=== PATIENT | female | born 1975 | race African-American/Black ===

== ENCOUNTER 2020-11-14 17:08 | Emergency (ER) | payer OTHER, SELFPAY ==
--- NOTE | ~2020-11-14 | XR_ITS ---
XR chest 1V 11/14/2020 18:27 Indication: Coughing Procedure: 2 view chest Comparison: No prior studies for comparison. Findings: Bibasilar infiltrates. Heart size normal. No pleural effusion, edema or pneumothorax. No ac brenda osseous abnormality. Impression: 1: Bibasilar infiltrates may represent atelectasis or developing pneumonia. Reviewed, dictated and finalized at location A. Impression: 1: Bibasilar infiltrates may represent atelectasis or developing pneumonia.
[2020-11-14 17:31] VITALS: BP 149/96; PULSE 103; RESP 21; TEMP 36.4; O2SAT 97
[2020-11-14 18:03] LABS: Basophils Percent Auto 0.2 % (0.2-1.2); Hematocrit 40.1 % (37.0-47.0); Hemoglobin 12.6 g/dL (12.0-15.0); Immature Granulocyte Absolute 0.02 K/mm3 (0.00-0.031); Immature Granulocyte Percent A 0.3 % (0-0.5); Lymphocytes Absolute Auto 1.81 K/mm3 (0.9-3.2); Lymphocytes Percent Auto 31.2 % (18.3-44.2); Mean Corpuscular HGB Conc 31.4 g/dl (32-36); Mean Corpuscular Hemoglobin 26.8 pg (26-34); Mean Corpuscular Volume 85.3 fl (80-100); Mean Platelet Volume 10.6 fl (7.4-10.4); Monocytes Absolute Auto 0.6 K/mm3 (0.1-0.6); Neutrophils Absolute Auto 3.4 K/mm3 (1.3-6.7); Neutrophils Percent Auto 58.3 % (45.5-73.1); Platelet Count Result 177 k/mm3 (150-375); Red Cell Distribution Width 14.3 % (11.5-14.5); White Blood Count 5.8 K/mm3 (4.5-10.0)
[2020-11-14 18:22] LABS: Alanine Aminotransferase 42 U/L (4-35); Albumin Level 4.1 g/dL (3.5-5.1); Alkaline Phosphatase 50 U/L (38-126); Anion Gap 8 mmol/L (8-16); Aspartate Amino Transferase 44 U/L (14-36); Bilirubin,Total 0.6 mg/dL (0.2-1.3); Blood Urea Nitrogen 13 mg/dL (7-17); Calcium 8.1 mg/dL (8.4-10.2); Carbon Dioxide 27 mmol/L (22-30); Chloride 100 mmol/L (98-107); Estimated CRCL calculation 140 ml/min; Estimated Glomerular Filt Rate > 60; Glucose 147 mg/dL (65-110); Potassium 3.9 mmol/L (3.4-5.0); Sodium 135 mmol/L (137-145)
--- NOTE | 2020-11-14 20:15 | ED.URI ---
HPI - URI/Sore Throat General Chief Complaint: Upper Respiratory Infection Stated Complaint: Cough, Covid +10 days ago Time Seen by Provider: 11/14/20 19:58 Source: patient Mode of arrival: ambulatory Limitations: no limitations History of Present Illness HPI Narrative: 45-year-old with a history of hypertension, asthma here with complaints of cough for past 1 week. Patient states that she was having tough time catching her breath this afternoon. She denies any fever or chills. Patient states that she finished a course of Z-Maldonado and she is presently on prednisone. She also states that she use her inhalers. She denies any chest pain or fever at this time. MD elicited complaint: cough and nasal congestion Pertinent past history: asthma Onset (ago): week(s) (1) Consistency: intermittent Severity: moderate Able to tolerate fluids by mouth: Yes Exacerbating factors: nothing Relieving factors: nothing Associated symptoms: denies other symptoms Related Data Home Medications Medication Instructions Recorded Confirmed albuterol sulfate INHALATION 11/14/20 hydrochlorothiazide 11/14/20 loratadine mg 11/14/20 pantoprazole PO 11/14/20 Allergies Allergy/AdvReac Type Severity Reaction Status Date / Time No Known Allergies Allergy Verified 11/14/20 19:57 Review of Systems Review of Systems: All systems reviewed & are unremarkable except as noted in HPI and below Constitutional: Constitutional: Reports no additional constitutional complaints Eyes: Eyes: Reports no additional eye complaints ENT: Reports system reviewed and no additional complaints, except as documented Cardiovascular: Cardiovascular: Reports no additional cardiovascular complaints Respiratory: Respiratory: Reports cough and Reports dyspnea Gastrointestinal: Gastrointestinal: Reports no additional gastrointestinal complaints Musculoskeletal: Musculoskeletal: Reports no additional musculoskeletal complaints Neurologic: Reports system reviewed and no additional complaints, except as documented Psychiatric: Psychiatric: Reports no additional psychiatric complaints Exam Narrative: GENERAL: Well-appearing, well-nourished, and in no acute distress. HEAD: Normocephalic, atraumatic. EYES: PERRLA and EOMI. NECK: Supple. CHEST: Clear to auscultation. No respiratory distress. HEART: Regular rate and rhythm. No murmur heard. Normal peripheral pulses. ABDOMEN: Soft, nontender, nondistended, normal active bowel sounds. EXTREMITIES: Normal range of motion. No edema. SKIN: Warm, dry, no rash. NEURO: No focal deficits. Alert and oriented x3. PSYCH: Normal mood and affect. Course Course Emergency Course: Patient comfortably lying on the bed with 98% on O2 saturations. Informed her about her lab work, x-ray findings. Advised her to continue prednisone. Take Robitussin [id number] as needed. Informed her that she does not require any antibiotics at this time. Vital Signs Vital signs: Vital Signs Temperature 36.4 C L 11/14/20 17:31 Pulse Rate 103 H 11/14/20 17:31 Respiratory Rate 21 H 11/14/20 17:31 Blood Pressure 149/96 H 11/14/20 17:31 Pulse Oximetry 97 11/14/20 17:31 Temperature 36.4 C L 11/14/20 17:31 Pulse Rate 103 H 11/14/20 17:31 Respiratory Rate 21 H 11/14/20 17:31 Blood Pressure 149/96 H 11/14/20 17:31 Pulse Oximetry 97 11/14/20 17:31 MDM - URI/Sore Throat Lab Data Result diagrams: 11/14/20 17:55 11/14/20 17:55 Labs: Lab Results 11/14/20 11/14/20 Range/Units 17:55 17:55 WBC 5.8 (4.5-10.0) K/mm3 RBC 4.70 (4.2-5.4) M/mm3 Hgb 12.6 (12.0-15.0) g/dL Hct 40.1 (37.0-47.0) % MCV 85.3 (80-100) fl MCH 26.8 (26-34) pg MCHC 31.4 L (32-36) g/dl RDW 14.3 (11.5-14.5) % Plt Count 177 (150-375) k/mm3 MPV 10.6 H (7.4-10.4) fl Immature Gran % (Auto) 0.3 (0-0.5) % Neut % (Auto) 58.3 (45.5-73.1) % Lymph % (Auto) 31.2 (18.3-44.2) %
[2020-11-14 21:19] VITALS: BP 106/78; PULSE 90; RESP 16; O2SAT 97
== END 2020-11-14 21:21 | disposition home or self-care (01) ==
PROVIDERS: Internal Medicine Nephrology; Emergency Provider Family Medicine; PCP Internal Medicine Gastroenterology
DX: J45.909 Unspecified asthma, uncomplicated (principal)
CPT/HCPCS: 36415; 71045; 80053; 85025; 99283

== ENCOUNTER 2021-11-14 14:03 | Emergency (ER) | payer OTHER, SELFPAY ==
[2021-11-14] VITALS (15 sets, daily range): BP systolic 124–150; BP diastolic 66–106; PULSE 95–138; RESP 12–36; TEMP 36.7; O2SAT 95–100
--- NOTE | ~2021-11-14 | CT_ITS ---
EXAMINATION: CT abdomen pelvis w con DATE: 11/14/2021 18:04 INDICATION: Upper abdominal pain TECHNIQUE: Computed tomography (CT) of the abdomen and pelvis was performed with 100 mL Omnipaque-350 intravenous contrast. Automated exposure control and iterative reconstruction technique were employe d. The dose-length product was 1591.70 mGy-cm. COMPARISON: None FINDINGS: Discoid atelectasis at the lingula. Heart size is normal. No pericardial or pleural effusion. Liver, gallbladder, spleen, pancreas, bilateral adrenal glands and kidneys are normal. Postoperative change of prior umbilical hernia mesh repair situated within the larger region of ventral diastases. Bowels including the appendix are normal. Bladder is normal. Small uterine fibroids, the larger at the poste rior fundus measuring approximately 2 cm. Bilateral adnexa are unremarkable. No free intraperitoneal gas or fluid. No pathologically enlarged abdominal or pelvic lymphadenopathy. Mild scattered degenera tive skeletal changes. IMPRESSION: 1. No acute intra-abdominal/pelvic process. 2. Fibroid uterus. 3. Postoperative change of prior ventral hernia mesh repair within a larger region of ventral diastas es. Reviewed, dictated and finalized at location A. IMPRESSION: 1. No acute intra-abdominal/pelvic process. 2. Fibroid uterus. 3. Postoperative change of prior ventral hernia mesh repair within a larger reg ion of ventral diastases.
--- NOTE | 2021-11-14 15:10 | ED.WEAKNESS ---
HPI - Weakness General Chief complaint: Weakness Stated complaint: dont feel well Time Seen by Provider: 11/14/21 15:04 Source: patient, family and RN notes reviewed Mode of arrival: ambulatory Limitations: no limitations History of Present Illness HPI Narrative: 46 years old -German female is telling me that she woke up this morning not feeling well, hot and cold all day long with nausea and body aches. She denies any fever or chills. Also reports a stomach upset. History of hypertension. Irregular menstrual cycle for the last 12 months. History of COVID 1 year ago. Related Data Home Medications Medication Instructions Recorded Confirmed albuterol sulfate 90 mcg/actuation inhalation 11/14/20 aerosol inhaler hydrochlorothiazide 25 mg tablet 11/14/20 loratadine 10 mg tablet mg 11/14/20 pantoprazole 40 mg tablet,delayed PO 11/14/20 release Allergies Allergy/AdvReac Type Severity Reaction Status Date / Time No Known Allergies Allergy Verified 11/14/21 15:10 Review of Systems Review of Systems: All systems reviewed & are unremarkable except as noted in HPI and below Exam Narrative: General appearance: Well-developed, well-nourished Skin: Normal color Head: Normocephalic, nontraumatic Eyes: Clear conjunctiva ENT: Oropharynx normal, ears normal, nose normal Neck: Supple, nontender Chest and respiratory: Airway patent, no respiratory distress, no accessory muscle use Heart: Regular rate/rhythm Abdomen: Soft, moderate tenderness epigastric and right upper quadrant, no organomegaly, quiet bowel sounds Vascular: Normal peripheral pulses, normal capillary refill. Musculoskeletal: Normal range of motion, nontender back Neurologic: Alert and oriented ?3, RESIDENTIAL LEASING MANAGER is normal as tested, no gross motor deficit Course Vital Signs Vital signs: Vital Signs Temperature 36.7 C 11/14/21 14:40 Pulse Rate 102 H 11/14/21 14:40 Respiratory Rate 16 11/14/21 14:40 Blood Pressure 146/87 H 11/14/21 14:40 Pulse Oximetry 100 11/14/21 14:40 Oxygen Delivery Room Air 11/14/21 14:40 Temperature 36.7 C 11/14/21 14:40 Pulse Rate 104 H 11/14/21 15:09 Respiratory Rate 36 H 11/14/21 15:09 Blood Pressure 150/106 H 11/14/21 15:09 Pulse Oximetry 100 11/14/21 15:09 Oxygen Delivery Room Air 11/14/21 15:09 MDM - Weakness MDM Narrative Medical decision making narrative: Patient presents with feeling hot and cold, body aches, nausea, vomited once in the emergency room, was very restless on arrival, unable to sit still. She denies any respiratory symptoms, fever, chills, diarrhea, constipation. Work-up showed that the patient have COVID infection, patient is not vaccinated, had history of COVID 1 year ago. Currently feeling better after IV fluid and Dilaudid IV. Differential Diagnosis Differential diagnosis: Likely dehydration and other (Abdominal pain, gastritis, and anxiety-like symptoms) Lab Data Result diagrams: 11/14/21 15:25 11/14/21 15:25 Labs: Lab Results 11/14/21 11/14/21 11/14/21 Range/Units 15:21 15:25 15:25 WBC 9.1 (4.5-10.0) K/mm3 RBC 4.77 (4.2-5.4) M/mm3 Hgb 13.1 (12.0-15.0) g/dL Hct 41.5 (37.0-47.0) % MCV 87.0 (80-100) fl MCH 27.5 (26-34) pg MCHC 31.6 L (32-36) g/dl RDW 14.0 (11.5-14.5) % Plt Count 209 (150-375) k/mm3 MPV 9.5 (7.4-10.4) fl Immature Gran % (Auto) 0.3 (0-0.5) % Neut % (Auto) 77.6 H (45.5-73.1) % Lymph % (Auto) 6.9 L (18.3-44.2) % [place] % (Auto) 14.1 H (2.6-8.5) % Eos % (Auto) 0.9 (0-4.4) % Baso % (Auto) 0.2 (0.2-1.2) % Lymph # (Auto) 0.63 L (0.9-3.2) K/mm3
[2021-11-14 15:33] LABS: Basophils Percent Auto 0.2 % (0.2-1.2); Eosinophils Absolute Auto 0.1 K/mm3 (0-0.3); Eosinophils Percent Auto 0.9 % (0-4.4); Hematocrit 41.5 % (37.0-47.0); Hemoglobin 13.1 g/dL (12.0-15.0); Immature Granulocyte Absolute 0.03 K/mm3 (0.00-0.031); Immature Granulocyte Percent A 0.3 % (0-0.5); Lymphocytes Absolute Auto 0.63 K/mm3 (0.9-3.2); Lymphocytes Percent Auto 6.9 % (18.3-44.2); Mean Corpuscular HGB Conc 31.6 g/dl (32-36); Mean Corpuscular Hemoglobin 27.5 pg (26-34); Mean Platelet Volume 9.5 fl (7.4-10.4); Monocytes Absolute Auto 1.3 K/mm3 (0.1-0.6); Monocytes Percent Auto 14.1 % (2.6-8.5); Neutrophils Absolute Auto 7.1 K/mm3 (1.3-6.7); Neutrophils Percent Auto 77.6 % (45.5-73.1); Platelet Count Result 209 k/mm3 (150-375); Red Blood Count 4.77 M/mm3 (4.2-5.4); White Blood Count 9.1 K/mm3 (4.5-10.0)
[2021-11-14 15:44] LABS: Alanine Aminotransferase 19 U/L (6-35); Albumin Level 4.7 g/dL (3.5-5.1); Alkaline Phosphatase 81 U/L (38-126); Anion Gap 13 mmol/L (8-16); Aspartate Amino Transferase 26 U/L (14-36); Bilirubin,Total 0.3 mg/dL (0.2-1.3); Blood Urea Nitrogen 10 mg/dL (7-17); Carbon Dioxide 26 mmol/L (22-30); Chloride 99 mmol/L (98-107); Estimated CRCL calculation 99 ml/min; Estimated Glomerular Filt Rate > 60; Glucose 116 mg/dL (65-110); Potassium 3.8 mmol/L (3.4-5.0); Sodium 138 mmol/L (137-145)
[2021-11-14 16:17] LABS: Thyroid Stimulating Hormone 0.364 uIU/mL (0.465-4.680)
[2021-11-14 16:21] LABS: Appearance Urine Clear (Clear); Bilirubin Urine Negative (Negative); Color Urine Yellow (Yellow); Glucose Urine UA Negative (Negative); Ketones Urine 1+ mg/dL (Negative); Leukocyte Esterase Ur Negative LEU/UL (Negative); Nitrate Urine Negative (Negative); Protein Urine Negative (Negative); pH Urine 7.5 (5.0-9.0)
[2021-11-14 16:22] LABS: Add Urine Microscopic? YES; Blood Urine Trace-Intact (Negative)
[2021-11-14 16:25] LABS: Mucus Urine Rare /lpf; Squamous Epithelial Cell Urine Occasional /hpf (Few); WBC Urine 0-3 /hpf
[2021-11-14 16:38] LABS: Amphetamine Screen Urine Negative (Negative); Barbiturate Screen Urine Negative (Negative); Benzodiazepines Screen Urine Negative (Negative); Cannabinoid Screen Urine Negative (Negative); Cocaine Screen Urine Negative (Negative); Methadone Screen Urine Negative (Negative); Opiate Screen Urine Negative (Negative); Phencyclidine Screen Urine Negative (Negative)
[2021-11-14] MEDS: ONDANSETRON INJ 4 MG/2 ML VIAL 8 MG IV PUSH (17:26)
[2021-11-14] MEDS: HYDROmorphone HCL INJ (*CRX) 1 MG/ML SYR 0.5 MG IV PUSH (17:26)
[2021-11-14] MEDS: SODIUM CHLORIDE 0.9% IV 1,000 ML 999 ML IV CONT (17:26)
[2021-11-14 17:28] LABS: Lipase 174 U/L (23-300)
[2021-11-14 20:05] LABS: SARS-CoV-2 RNA PCR Positive
== END 2021-11-14 21:05 | disposition home or self-care (01) ==
PROVIDERS: Emergency Provider Emergency Medicine; PCP Internal Medicine Gastroenterology
DX: U07.1 COVID-19 (principal); I10 Essential (primary) hypertension; Z79.51 Long term (current) use of inhaled steroids; Z86.16 Personal history of COVID-19; Z28.310 Unvaccinated for COVID-19
CPT/HCPCS: 36415; 74177; 80053; 80307; 81001; 83690; 84443; 85025; 96361; 96374; 96375; 99284; C9803; J1170; J2405; J7030; Q9967; U0003; U0005

== ENCOUNTER 2023-03-09 08:09 | Emergency (ER) | payer OTHER, SELFPAY ==
--- NOTE | ~2023-03-09 | XR_ITS ---
EXAMINATION: XR chest 1V portable DATE: 03/09/2023 08:46 INDICATION: Headache. Dizziness. TECHNIQUE: A single frontal view of the chest was obtained. COMPARISON: CT abdomen and pelvis 11/14/2021 FINDINGS: There is no pneumonia, pleural effusion, or pneumothorax. The heart size is normal. IMPRESSION: 1. No acute cardiopulmonary disease. Reviewed, dictated and finalized at location A. ORT TECHNICIAN
--- NOTE | ~2023-03-09 | CT_ITS ---
EXAMINATION: CT brain wo con DATE: 03/09/2023 08:55 INDICATION: Dizziness. TECHNIQUE: Computed tomography (CT) of the head was performed without intravenous contrast. The mA wa s adjusted according to patient size. Iterative reconstruction technique was employed. The dose-lengt h product was 681.00 mGy-cm. COMPARISON: None FINDINGS: There is no intracranial hemorrhage, acute infarction, or abnormal intracranial mass lesion . The ventricles are normal in size. The orbits are normal. There is mucosal thickening in the parana brandi sinuses. The mastoid air cells are normal. IMPRESSION: 1. Normal brain. Reviewed, dictated and finalized at location A. E FURNISHINGS SUPERVISOR IMPRESSION: 1. Normal brain.
[2023-03-09 08:06] VITALS: BP 150/103; PULSE 89; RESP 16; TEMP 36.4; O2SAT 100
--- NOTE | 2023-03-09 08:20 | ECG_ITS ---
Measurements Intervals [place] Rate: 86 P: 52 CA: 176 QRS: -7 QRSD: 89 T: 11 QT: 369 QTc: 443 Interpretive Statements SINUS RHYTHM VOLTAGE CRITERIA FOR LVH CONSIDER INFERIOR INFARCT, AGE INDETERMINATE BASELINE ARTIFACT- I, III, AVL, AVF, V2-V3 ABNORMAL ECG NO PREVIOUS ECG AVAILABLE FOR COMPARISON Electronically Signed On 03-09-2023 14:20:33 BUSINESS SYSTEMS DEVELOPER by Higinio Lopez D.O.
[2023-03-09] MEDS: hydroCHLOROthiazide 25 MG TABLET PO (08:37)
[2023-03-09] MEDS: hydrALAZINE HCL 20 MG/ML VIAL 10 MG IV PUSH (08:38)
--- NOTE | 2023-03-09 08:38 | ED.DIZZY ---
HPI - Dizziness General Chief Complaint: Dizziness Stated Complaint: Dizzy w/ Hypertension History of Present Illness HPI Narrative: 47-year-old female presenting to the emergency department for evaluation of vertigo symptoms. Patient states that over the course of the last month she has not been taking her blood pressure medications. Patient states last night she was emotionally upset and had onset of dizziness. Patient states the dizziness persisted throughout the evening and into the morning. Patient was trying to ambulate this morning when the dizziness was affecting her more so she presented to the emergency department for evaluation. Patient states when she sits down, rests or closes her eyes that the dizziness improves. Patient states she was having some epigastric burning with this but denies any chest pain or shortness of breath. Patient denies any nausea vomiting or diarrhea. Patient denies any prior history of CVA but states she may have had a prior TIA. Patient denies any history of coronary artery disease. Related Data Home Medications Medication Instructions Recorded Confirmed albuterol sulfate 90 mcg/actuation inhalation 11/14/20 aerosol inhaler hydrochlorothiazide 25 mg tablet 11/14/20 loratadine 10 mg tablet mg 11/14/20 pantoprazole 40 mg tablet,delayed PO 11/14/20 release Allergies Allergy/AdvReac Type Severity Reaction Status Date / Time No Known Allergies Allergy Verified 11/14/21 15:10 Review of Systems Review of Systems: All systems reviewed & are unremarkable except as noted in HPI and below Exam Narrative: APPEARANCE: Well appearing, no pain, no distress, well-nourished. HEAD: normocephalic, atraumatic. EYES: PERRLA/EOMI, conjunctivae clear. NOSE: Normal no drainage EARS:TMS clear with good light reflex. THROAT: Pharynx clear, no exudate. NECK: Supple. No adenopathy, no masses. RESPIRATORY: Airway patent, respirations nonlabored. Clear to auscultation bilaterally, no rales, rhonchi, wheezing. CARDIOVASCULAR: Regular rate and rhythm without murmurs rubs or gallops. ABDOMINAL: Soft, nontender, nondistended, normal bowel sounds MUSCULOSKELETAL: Moves all extremities. Strength/ROM intact, No edema, No calf tenderness. NEURO: Alert. Cranial nerves II through XII intact. Grossly intact SKIN: Warm, dry. Normal Color Course Course Emergency Course: 47-year-old female present to the emergency department for evaluation of hypertension headache and dizziness. Patient was afebrile with no leukocytosis and a stable hemoglobin. patient was negative for influenza RSV and for COVID. Patient had negative serial troponins. Head CT showed no acute intracranial abnormality and chest x-ray showed no acute cardiopulmonary abnormality. Patient did feel improved with treatment, patient was treated with hydralazine and her hydrochlorothiazide. Patient was encouraged to restart her hydrochlorothiazide and to have close follow-up with her primary care physician. Vital Signs Vital signs: Vital Signs Temperature 97.6 F 03/09/23 08:06 Pulse Rate 89 03/09/23 08:06 Respiratory Rate 16 03/09/23 08:06 Blood Pressure 150/103 H 03/09/23 08:06 Pulse Oximetry 100 03/09/23 08:06 Oxygen Delivery Room Air 03/09/23 08:06 Temperature 97.6 F 03/09/23 08:06 Pulse Rate 98 03/09/23 13:00 Respiratory Rate 19 03/09/23 13:00 Blood Pressure 116/81 03/09/23 13:00 Pulse Oximetry 97 03/09/23 13:00 Oxygen Delivery Room Air 03/09/23 08:06 MDM - Dizziness Differential Diagnosis Differential diagnosis: Likely benign paroxysmal positional vertigo, orthostatic hypotension, cerebrovascular accident and transient cerebral ischemia Lab Data Attestation: I reviewed the patient's lab results. 03/09/23 09:09 03/09/23 09:09 Labs: Lab Results 03/09/23 03/09/23 03/09/23 Range/Units 08:22 09:09 12:13 WBC 9.2 (4.5-10.0) K/mm3 RBC 4.60
[2023-03-09] MEDS: MECLIZINE HCL 25 MG TABLET PO (08:45)
[2023-03-09 08:47] VITALS: BP 138/87; PULSE 90; RESP 16
[2023-03-09 09:06] LABS: Influenza A QL RT-PCR Negative (Negative); Influenza B QL RT-PCR Negative (Negative); RSV RNA, RT-PCR Negative (Negative); SARS-CoV-2 RNA PCR Negative (Negative)
[2023-03-09 09:15] LABS: Basophils Percent Auto 0.4 % (0.2-1.2); Eosinophils Absolute Auto 0.4 K/mm3 (0-0.3); Eosinophils Percent Auto 4.6 % (0-4.4); Hematocrit 40.3 % (37.0-47.0); Hemoglobin 12.4 g/dL (12.0-15.0); Immature Granulocyte Absolute 0.06 K/mm3 (0.00-0.031); Immature Granulocyte Percent A 0.7 % (0-0.5); Lymphocytes Absolute Auto 2.73 K/mm3 (0.9-3.2); Lymphocytes Percent Auto 29.8 % (18.3-44.2); Mean Corpuscular HGB Conc 30.8 g/dl (32-36); Mean Corpuscular Volume 87.6 fl (80-100); Mean Platelet Volume 9.5 fl (7.4-10.4); Monocytes Absolute Auto 0.9 K/mm3 (0.1-0.6); Monocytes Percent Auto 9.3 % (2.6-8.5); Neutrophils Absolute Auto 5.1 K/mm3 (1.3-6.7); Neutrophils Percent Auto 55.2 % (45.5-73.1); Platelet Count Result 244 k/mm3 (150-375); Red Cell Distribution Width 14.6 % (11.5-14.5); White Blood Count 9.2 K/mm3 (4.5-10.0)
[2023-03-09 09:27] LABS: Alanine Aminotransferase 16 U/L (6-35); Albumin Level 4.1 g/dL (3.5-5.1); Alkaline Phosphatase 80 U/L (38-126); Anion Gap 7 mmol/L (8-16); Aspartate Amino Transferase 21 U/L (14-36); Bilirubin,Total 0.4 mg/dL (0.2-1.3); Blood Urea Nitrogen 8 mg/dL (7-17); Calcium 8.7 mg/dL (8.4-10.2); Carbon Dioxide 27 mmol/L (22-30); Chloride 106 mmol/L (98-107); Estimated CRCL calculation 133 ml/min; Estimated Glomerular Filt Rate > 60; Glucose 106 mg/dL (65-110); Potassium 3.7 mmol/L (3.4-5.0); Sodium 140 mmol/L (137-145)
[2023-03-09 09:38] LABS: Troponin I < 0.012 ng/mL (0.000-0.034)
[2023-03-09 09:40] VITALS: BP 130/76; PULSE 92; RESP 17; O2SAT 100
[2023-03-09 11:29] VITALS: BP 129/77; PULSE 89; RESP 16; O2SAT 100
[2023-03-09] MEDS: BELLADONNA ALK/PHENOB ELIX 10 ML, MAG HYDROX/ALUMINUM HYD/SIMETH 30 ML, LIDOCAINE HCL 2... PO (11:51)
--- NOTE | 2023-03-09 12:10 | ECG_ITS ---
Measurements Intervals [place] Rate: 85 P: 30 MI: 192 QRS: -7 QRSD: 93 T: 17 QT: 376 QTc: 448 Interpretive Statements SINUS RHYTHM VOLTAGE CRITERIA FOR LVH CONSIDER INFERIOR INFARCT, AGE INDETERMINATE ABNORMAL ECG COMPARED TO ECG 03/09/2023 08:23:44 NO SIGNIFICANT CHANGES Electronically Signed On 03-09-2023 14:30:57 JOB ANALYSIS MANAGER by Higinio Lopez D.O.
[2023-03-09 12:40] LABS: Troponin I < 0.012 ng/mL (0.000-0.034)
[2023-03-09 13:00] VITALS: BP 116/81; PULSE 98; RESP 19; O2SAT 97
== END 2023-03-09 13:02 | disposition home or self-care (01) ==
PROVIDERS: Emergency Provider Emergency Medicine; PCP Internal Medicine Gastroenterology
DX: R42 Dizziness and giddiness (principal); I10 Essential (primary) hypertension; Z20.822 Contact with and (suspected) exposure to COVID-19; T50.2X6A Underdosing of carbonic-anhydrase inhibitors, benzothiadiazides and other diuretics, initial encounter; R94.31 Abnormal electrocardiogram [ECG] [EKG]
CPT/HCPCS: 36415; 70450; 71045; 80053; 84484; 85025; 87637; 93005; 96374; 99284; A9270; J0360

== ENCOUNTER 2023-11-09 08:57 | Emergency (ER) | payer SELFPAY ==
[2023-11-09] VITALS (19 sets, daily range): BP systolic 140–167; BP diastolic 82–101; PULSE 76–88; RESP 14–23; TEMP 36.5; O2SAT 98–100
--- NOTE | ~2023-11-09 | XR_ITS ---
Portable chest x-ray Comparison: 03/09/2023 Clinical History: Cough Findings: Lungs are clear, without focal consolidation or pleural effusion. Cardiomediastinal silho uette is stable. Bones and soft tissues are unremarkable. Impression: Normal chest. Reviewed, dictated and finalized at [facility]. Impression: Normal chest.
--- NOTE | 2023-11-09 09:03 | ECG_ITS ---
Test Date: 2023-11-09 09:04:36 Measurements Intervals [place] Rate: 81 P: 59 CO: 189 QRS: -8 QRSD: 97 T: 20 QT: 377 QTc: 439 Interpretive Statements SINUS RHYTHM VOLTAGE CRITERIA FOR LVH CONSIDER INFERIOR INFARCT, AGE INDETERMINATE ABNORMAL ECG No previous ECG available for comparison Electronically Signed On 11-09-2023 09:36:52 CDT by Higinio Lopez D.O.
[2023-11-09 09:16] LABS: Basophils Percent Auto 0.5 % (0.2-1.2); Eosinophils Absolute Auto 0.3 K/mm3 (0-0.3); Eosinophils Percent Auto 3.2 % (0-4.4); Hematocrit 38.1 % (37.0-47.0); Hemoglobin 12.2 g/dL (12.0-15.0); Immature Granulocyte Absolute 0.04 K/mm3 (0.00-0.031); Immature Granulocyte Percent A 0.5 % (0-0.5); Lymphocytes Absolute Auto 3.23 K/mm3 (0.9-3.2); Lymphocytes Percent Auto 36.5 % (18.3-44.2); Mean Corpuscular Hemoglobin 28.2 pg (26-34); Mean Platelet Volume 9.6 fl (7.4-10.4); Monocytes Absolute Auto 0.9 K/mm3 (0.1-0.6); Monocytes Percent Auto 9.8 % (2.6-8.5); Neutrophils Absolute Auto 4.4 K/mm3 (1.3-6.7); Neutrophils Percent Auto 49.5 % (45.5-73.1); Platelet Count Result 219 k/mm3 (150-375); Red Blood Count 4.33 M/mm3 (4.2-5.4); Red Cell Distribution Width 14.1 % (11.5-14.5); White Blood Count 8.9 K/mm3 (4.5-10.0)
[2023-11-09 09:25] LABS: BEDSIDEPREGUCG Negative
[2023-11-09 09:32] LABS: Alanine Aminotransferase 31 U/L (6-35); Alkaline Phosphatase 76 U/L (38-126); Anion Gap 7 mmol/L (4-12); Aspartate Amino Transferase 32 U/L (14-36); Bilirubin,Total 0.3 mg/dL (0.2-1.3); Blood Urea Nitrogen 12 mg/dL (7-17); Carbon Dioxide 29 mmol/L (22-30); Chloride 102 mmol/L (98-107); Estimated CRCL calculation 116 ml/min; Estimated Glomerular Filt Rate > 60; Glucose 95 mg/dL (65-110); Lipase 269 U/L (23-300); Potassium 3.4 mmol/L (3.4-5.0); Sodium 138 mmol/L (137-145)
--- NOTE | 2023-11-09 09:38 | ED.DIZZY ---
HPI - Dizziness General Chief Complaint: Dizziness Stated Complaint: dizzy x days Time Seen by Provider: 11/09/23 09:18 Source: patient Mode of arrival: ambulatory Limitations: no limitations History of Present Illness HPI Narrative: This is a 48-year-old female who presents to the ED via EMS for chief complaint of dizziness and feeling ill for the past several days. Patient reports the dizziness it is intermittent. States it is specifically worsened when she sits up or stands up. Patient also reports being around several sick people at work recently. She works at a [employer]. Patient states that she does not have any symptoms of spinning or vertigo. endorses issues with her gallbladder with heartburn recently. She has known history of GERD. states that she knows her blood pressure is high but she has not taken her blood pressure meds today. Denies fevers, chills, tenderness, vision change, headache, Related Data Home Medications Medication Instructions Recorded Confirmed albuterol sulfate 90 mcg/actuation inhalation 11/14/20 aerosol inhaler hydrochlorothiazide 25 mg tablet 11/14/20 loratadine 10 mg tablet mg 11/14/20 pantoprazole 40 mg tablet,delayed PO 11/14/20 release Allergies Allergy/AdvReac Type Severity Reaction Status Date / Time No Known Allergies Allergy Verified 11/09/23 10:00 Review of Systems Review of Systems: All systems as dictated in HPI Exam Narrative: GENERAL: Well-appearing, well-nourished, and in no acute distress. HEAD: Normocephalic, atraumatic. EYES: PERRLA and EOMI. ENT: Nares clear, no rhinorrhea or epistaxis. Mucous membranes moist. Oropharynx without tonsillar hypertrophy exudate or other lesions. NECK: Supple. No adenopathy or masses. CHEST: No respiratory distress. Clear to auscultation. No wheezes rales or rhonchi HEART: Regular rate and rhythm. No murmur heard. Normal peripheral pulses. ABDOMEN: Soft, nontender, nondistended, normal active bowel sounds. MSK: Normal range of motion. No edema. SKIN: Warm, dry, no rash. NEURO: Alert and oriented x4. No focal deficits. PSYCH: Normal mood and affect. Course Vital Signs Vital signs: Vital Signs Temperature 97.7 F 11/09/23 08:57 Pulse Rate 88 11/09/23 08:57 Respiratory Rate 17 11/09/23 08:57 Blood Pressure 167/101 H 11/09/23 08:57 Pulse Oximetry 100 11/09/23 08:57 Oxygen Delivery Room Air 11/09/23 08:57 Temperature 97.7 F 11/09/23 08:57 Pulse Rate 83 11/09/23 11:47 Respiratory Rate 23 H 11/09/23 11:47 Blood Pressure 140/83 11/09/23 11:47 Pulse Oximetry 99 11/09/23 11:15 Oxygen Delivery Room Air 11/09/23 08:57 MDM - Dizziness MDM Narrative Medical decision making narrative: This is a 48-year-old female who presents to the ED for chief complaint dizziness, upper respiratory infection symptoms. Also has complaint of heartburn. Vitals are normal. Exam is benign overall. Lab work is grossly unremarkable. Urinalysis negative. Viral swabs are negative. Chest x-ray is. Troponin is. ECG shows normal sinus rhythm. dizziness does not seem to be consistent with vertigo or acute vestibular syndrome today. No focal neurologic deficits on exam. Seems to be more consistent with lightheadedness associated with viral syndrome. She was given normal saline a meclizine with good improvement. She is ambulatory without assistance. Pt will be discharged in stable condition. Return precautions given and supportive measures discussed. Pt is understanding and agreeable with plan for discharge and follow-up with PCP. Lab Data 11/09/23 09:09 11/09/23 09:09 Labs: Lab Results 11/09/23 11/09/23 11/09/23 Range/Units 09:08 09:09 09:16 WBC 8.9 (4.5-10.0) K/mm3 RBC 4.33 (4.2-5.4) M/mm3 Hgb 12.2 (12.0-15.0) g/dL Hct 38.1 (37.0-47.0) % MCV 88.0 (80-100) fl MCH 28.2 (26-34) pg MCHC 32.0
[2023-11-09 09:54] LABS: Influenza A QL RT-PCR Negative (Negative); Influenza B QL RT-PCR Negative (Negative); RSV RNA, RT-PCR Negative (Negative); SARS-CoV-2 RNA PCR Negative (Negative)
[2023-11-09 09:55] LABS: Add Urine Microscopic? YES; Appearance Urine Sl Cloudy (Clear); Bilirubin Urine Negative (Negative); Blood Urine Negative (Negative); Color Urine Yellow (Yellow); Glucose Urine UA Negative (Negative); Ketones Urine Negative (Negative); Leukocyte Esterase Ur Negative LEU/UL (Negative); Nitrate Urine Negative (Negative); Protein Urine Negative (Negative); Urobilinogen Urine 0.2 mg/dL (<2.0)
[2023-11-09] MEDS: SODIUM CHLORIDE 0.9% IV 1,000 ML 999 ML IV CONT (10:00)
[2023-11-09] MEDS: MECLIZINE HCL 25 MG TABLET PO (10:01)
[2023-11-09 10:32] LABS: Troponin I < 0.012 ng/mL (0.000-0.034)
== END 2023-11-09 12:06 | disposition home or self-care (01) ==
PROVIDERS: Student in an Organized Health Care Education/Training Program; Emergency Provider Physician Assistant; PCP Internal Medicine Gastroenterology
DX: B34.9 Viral infection, unspecified (principal); K21.9 Gastro-esophageal reflux disease without esophagitis; Z20.822 Contact with and (suspected) exposure to COVID-19
CPT/HCPCS: 36415; 71045; 80053; 81001; 81025; 83690; 84484; 85025; 87637; 93005; 96360; 99284; A9270; J7030

== ENCOUNTER 2024-07-20 18:53 | Emergency (ER) | payer SELFPAY ==
--- NOTE | ~2024-07-20 | CT_ITS ---
CT brain wo con Ordering provider: Jose Mendez MD History: 49 years Female with . CHI, presyncope . Comparison: March 09, 2023 Technique: CT of the head without contrast. Radiation reduction technique utilized.The dose-length pr oduct was 681 mGy-cm. FINDINGS: BRAIN PARENCHYMA AND CSF SPACES: No midline shift, mass effect or hemorrhage. The brain parenchyma a nd CSF spaces are otherwise normal. Empty sella turcica. VISUALIZED PARANASAL SINUSES: Bilateral ethmoid sinus disease. Well aerated. MASTOIDS: Well aerated. BONES: The bones appear intact. SOFT TISSUES: Visualized nasopharynx is normal. Superficial soft tissues are normal. IMPRESSION: No acute intracranial findings. Reviewed, dictated and finalized at location A.
--- OUTSIDE RECORDS SUMMARY | 2024-07-20 18:56 | XMS_ITS | Referral Summary ---
Author Organization [facility] Address [address] [place] [address] Care Team Providers Care Associate Financial Analyst Name Role Phone Nadia Colunga MD Primary Care Provider Allergies No known active allergies Medications hydroCHLOROth iazide (HYDRODIURIL) 25 mg tablet hydrochlorothiazide 25 mg tablet TAKE 1 TABLET BY MOUTH EVERY DAY Active pantoprazole DR (PROTONIX) 40 mg EC tablet pantoprazole 40 mg tablet,delayed release Ac tive albuterol HFA (PROVENTIL HFA,VENTOLIN HFA,PROAIR HFA) 90 mcg/actuation inhaler albuterol sulfate HFA 90 mcg/actuation aerosol inhaler INHALE TWO PUFFS BY MOUTH FOUR TIMES A DAY Ac tive loratadine (CLARITIN) 10 mg tablet loratadine 10 mg tablet Take 1 tablet every day by oral route. 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 Never 04/16/2020 Average Number of Drinks Not on file 021 Frequency of Binge Drinking Not on file 10/2020 Personal Safety Answer Date Recorded Getting School Help Needed Not on file 05/03 Comments Unknown Sex and Gender Information Value Date Recorded Sex Assigned at Not on file Legal Sex Female 11:32 PM OFFICE CORRESPONDENT Gender Identity Not on file Sexual Orientation Not on file Last Filed Vital Signs Vital Sign Reading Time Taken Comments Blood Pressure 157/91 04/16/2020 3:24 PM OFFICE CORRESPONDENT Pulse 96 04/16/2020 3:24 PM OFFICE CORRESPONDENT Temperature - - Respiratory Rate - - Oxygen Saturation - - Inhaled Oxygen Concentration - - Weight 139.1 kg (306 lb 9.6 oz) 021 12:41 PM CDT Height - - Body Mass Index - - Plan of Treatment Not on file Insurance [facility] Care Teams Associate Financial Analyst Relationship Specialty Start Date End Date Nadia Colunga MD [address] [place] [id number] PCP - General 04/20/20
--- OUTSIDE RECORDS SUMMARY | 2024-07-20 18:57 | XMS_ITS | CONTINUITY OF CARE DOCUMENT ---
Author Name olga espinoza Address Unknown Organization [facility] Address [address] [place] [address] Phone [phone] Care Team Providers Care Accounting Professor Name Role Phone Chito WEBBER, Home Unavailable LEONEL ABBOTT MD Unavailable LEONEL ABBOTT MD Unavailable PROBLEMS Condition Status Date Provider Notes GASTROESOPHAGEAL REFLUX DISEASE, HX OF active ? Home [facility] MD HYPERTENSION, ESSENTIAL;LABS PER PRIMARY active 06/07 Home Dale MD HYPERCHOLESTEROLEMIA;LABS PE R PRIMARY, NML 2009 active Home [facility] MD OBESITY active ? Home Dale MD SLEEP APNEA active Home Dale MD LVH;NML EF 03/2009 active Home Dale MD TRICUSPID REGURGITATION, MILD active Home Dale MD ABNORMAL STRESS NUCLEAR SCAN; WILL CATH active Home Dale MD ANEMIA, IRON DEFICIENCY;PER PRIMARY active Home Dale MD PANCREATITIS; active Home Dale MD FAMILY HX HEART DISEASE active Home oliver MD DIZZINESS active Home Dale MD DYSPNEA ON EXERTION;NEG CXR PER PT 2009 active Home Dale MD CHEST PAIN, ATYPICAL active [facility] ENCOUNTERS Date Type Provider Location Encounter Diag nosis - In-person encounter Office Visit Home Dale MD [facility] GASTROESOPHAGEAL REFLUX DISEASE, HX OFHYPERTENSION, ESSENTIAL;LABS PER PRIMARYHYPERCHOLESTEROLEMIA;L ABS PER PRIMARY, NML 2009OBESITYSLEEP APNEALVH;NML EF 03/2009TRICUSPID REGURGITATION, MILDABNORMAL STRESS NUCLEAR SCAN; WILL CATHANEMIA, IRON DEFICIENCY;PER PRIMARYPANCREATITIS;FAMILY HX HEART DISEASEDIZZINESSDYSPNEA ON EXERTION;NEG CXR PER PT 2009CHEST PAIN, ATYPICAL VITAL SIGNS Date Observation Value Provider blood pressure, diastolic, left arm 91 mm [Hg] Brett Franz RN blood pressure, systolic, left arm 131 mm [Hg] Brett Franz RN blood pressure, diastolic, right arm 89 m m[Hg] Brett Franz RN blood pressure, systolic, right arm 128 m m[Hg] Brett Franz RN blood pressure, diastolic 91 mm[Hg] Aidan Franz RN blood pressure, systolic 131 mm[Hg] Brett Franz RN pulse rate 85 /min Brett Franz RN oxygen saturation, oximetry 100 % Brett Franz RN respiratory rate E&M 18 /min Brett sanches RN weight E&M 261 [lb_av] Brett Franz RN RESULTS Date Observation Value Provider Reference Range Interpretation Location international normalized ratio (INR) 1.1 [facility] prothrombin time (patient) 10.6 s [facility] ferritin, serum 21 ng/mL Srinath Aleman amylase, serum 89 1/L Srinath Aleman lipase, serum 71 1/L Srinath Aleman amylase, serum 89 1/L Srin[facility] Aleman iron saturation percent, serum 11 % Srin[facility] Aleman iron, serum 32 ug/dL Srin[facility] Ale[facility] iron binding capacity, total 281 ug/dL Srinath Aleman globulins, serum, total 3.3 g/dL Srinath Aleman estimated glomerular filtration rate >60 Srin[facility] Aleman anion gap, serum 7.9 [facility] Aleman albumin/globulin ratio, serum 0.9 Srin[facility] Aleman protein, total, serum 6.4 g/dL [facility] albumin, serum 3.1 g/dL [facility] bilirubin, serum, total 0.10 mg/dL [facility] alkaline phosphatase, serum 64 1/L [facility] alanine aminotransferase (SGPT), serum 23 1/L [facility] aspartate aminotransferase (SGOT), serum 10 1/L [facility] calcium, serum 8.0 mg/dL [facility] blood glucose, fasting 92 mg/dL [facility] creatinine, serum 0.70 mg/dL [facility] urea nitrogen, blood 11 mg/dL [facility] carbon dioxide, serum, total 28 mmol/L [facility] chloride, serum 105 mmol/L [facility] potassium, serum 3.9 mmol/L [facility] sodium, serum 137 mmol/L [facility] platelet count 240 10*3/uL [facility] red blood cell distribution width 14.5 % [facility] mean corpuscular hemoglobin concentration, RBC 32.2 g/dL [facility] mean corpuscular hemoglobin, RBC 27.1 pg [facility] mean corpuscular volume, RBC 84.3 fL [facility] hematocrit, blood 33.9 % [facility] hemoglobin, blood 10.9 g/dL [facility] erythrocyte (RBC) count 4.02 10*6/mm3 [facility] monocytes as percent of blood leukocytes 10.1 % [facility] lymphocytes as percent of blood leukocytes 38.7 % [facility] leukocyte count, blood 8.1 10*3/mm3 [facility] Helicobacter pylori screen, serum Negative [facility] urate crystals, amorphous, urine, semiquantitative Occasional [facility] Ash mucus on urinalysis Moderate [facility] urine crystals, microscopic None [facility] Ash epithelial cells, urine, per microscopy Many [facility] casts, urine None [facility] Ash WBC urine on microscopy 1-3 [facility] bacteria, urine microscopy None [facility] Ash RBC urine by microscopy None [facility] Ash leukocyte esterase, urine, by dipstick Negative [facility] Ash urobilinogen, urine, semiquantitative (dipstick) Normal [facility] Ash nitrite, urine, semiquantitative Negative [facility] Ash RBC, urine, dipstick Negative [facility] Ahs bilirubin, urine Negative [facility] Ash ketones, urine, by test strip Negative [facility] Ash glucose, urine, semiquantitative Normal [facility] Ash protein, urine, semiquantitative (dipstick) Negative [facility] Ash pH, urine, semiquantitative 6.0 [facility] specific gravity, urine 1.020 [facility] Ash urine color Mary [facility] appearance, urine Hazy [facility] triglyceride, serum, fasting 60 mg/dL [facility] HDL cholesterol, serum 44 mg/dL [facility] LDL cholesterol, serum 101 mg/dL [facility] Ash cholesterol, serum 157 mg/dL [facility] Ash lipase, serum 310 1/L [facility] amylase, serum 69 1/L [facility] HISTORY OF MEDICATION USE Medication Status Instructions Dates Provider Indications Com ments IRON TABS active daily Brett Franz RN RANITIDINE HCL 150 MG ORAL TABLET active ONE TAB DAILY Brett Franz RN ASPIRIN 81 MG ORAL TABLET active ONE TAB. DAILY Brett Franz RN HYDROCHLOROTHIAZIDE 12.5 MG ORAL CAPSULE active ONE TAB. DAILY Brett Franz RN SOCIAL HISTORY Date Observation Value Provider social history E&M Marital Statu s: Single L tee with family/friends E thnicity: Brett Franz RN social history reviewed E&M reviewed Brett Franz RN physical exercise, f requency, days per week no [employer] caffeine use, averag e drinks per day no [employer] alcohol use, average drinks per day social basis only [employer] smoking status Non-smoker [employer] MENTAL STATUS Date Observation Value Provider assessment of judgme nt and insight E&M Alert and oriented to time, place and person. Mood and affect are normal. Brett Franz RN INSURANCE PROVIDERS Payer name Policy type / Coverage type [employer] party ID [employer] MEDICAID (2) Medicaid [id number] TREATMENT PLAN Date Name Performer consult due to test results: O rders: S pirometry (CPT-27292) H olter Monitor 24 Hr (CPT-21915) Home Dale MD consult due to test results: H er updated medication list for this problem includes: Aspirin 81 Mg Tabs (Aspirin) ..... One tab. daily Home Dale MD consult due to test results: H er updated medication list for this problem includes: Hydrochlorothiazide 12.5 Mg Caps (Hydrochlorothiazide) ..... One tab. daily Aspirin 81 Mg Tabs (Aspirin) ..... One tab. daily Orders: S pirometry (CPT-91093) H olter Monitor 24 Hr (CPT-97445) Home Dale MD consult due to test results: O rders: S pirometry (CPT-80368) H olter Monitor 24 Hr (CPT-02733) Home Dale MD consult due to test results Ana Luisa Dale MD consult due to test results: H er updated medication list for this problem includes: Hydrochlorothiazide 12.5 Mg Caps (Hydrochlorothiazide) ..... One tab. daily Orders: S pirometry (CPT-43889) H olter Monitor 24 Hr (CPT-27906) Home Dale MD consult due to test results: O rders: S leep Study (*) C omplete Echo (CPT-61668) Home Dale MD consult due to test results: O rders: S leep Study (*) C omplete Echo (CPT-18803) S pirometry (CPT-87802) H olter Monitor 24 Hr (CPT-72206) Home Dale MD consult due to test results: O rders: S pirometry (CPT-66689) H olter Monitor 24 Hr (CPT-98225) Home Dale MD consult due to test results: O rders: S leep Study (*) C omplete Echo (CPT-85693) S pirometry (CPT-23101) H olter Monitor 24 Hr (CPT-71339) Home Dale MD consult due to test results: B P today: 131/91 Prior BP: / () C HOL: 157 (03/26/2009) LDL: 101 (03/26/2009) HDL: 44 (03/26/2009) T (03/26/2009) Orders: S leep Study (*) C omplete Echo (CPT-96301) S pirometry (CPT-58015) H olter Monitor 24 Hr (CPT-97624) Home Dale MD consult due to test results: H er updated medication list for this problem includes: Hydrochlorothiazide 12.5 Mg Caps (Hydrochlorothiazide) ..... One tab. daily Aspirin 81 Mg Tabs (Aspirin) ..... One tab. daily BP today: 131/91 Labs Reviewed: C reat: 0.70 (03/26/2009) C hol: 157 (03/26/2009) HDL: 44 (03/26/2009) LDL: 101 (03/26/2009) T (03/26/2009) Orders: S leep Study (*) C omplete Echo (CPT-15484) Home Dale MD Date Name Gallbaladder Ultraso und Cardiac Cath - CNE Holter Monitor 24 Hr Spirometry Complete Echo Sleep Study
--- OUTSIDE RECORDS SUMMARY | 2024-07-20 18:57 | XMS_ITS | Data Portability ---
Author Organization [facility] Address [address] [place] [address] Assessment No assessment recorded. Plan of Treatment Reminders Order Date Submit Date Provider Last Modified By Organization Details Last Modified Time Details Appointments None recorded. Lab CMP, serum or plasma 2023 024 [place] [place] [facility], [address], [address], [place], [address], 4 07:16:18 lipid panel, serum 2023 024 [facility], [address], [address], [place], [address], 4 07:16:17 CBC 2023 024 [place] [facility], [address], [address], [place], [address], 4 07:16:19 TSH, ultra-sensi tive, serum 2023 024 [place] [place] [facility], [address], [address], [place], [address], 4 07:16:18 CBC 2021 022 [place] [facility], [address], [address], [place], [address], 2 06:12:17 CMP, serum or plasma 2021 022 [facility], [address], [address], [place], [address], 2 06:12:17 lipid panel, serum 2021 022 [facility], [address], [address], [place], [address], 2 06:12:16 CBC 2020 021 [facility], [address], [address], [place], [address], 1 08:17:16 CMP, serum or plasma 2020 021 [facility], [address], [address], [place], [address], 1 08:17:15 lipid panel, serum 2020 021 [facility], [address], [address], [place], [address], 1 08:17:16 platelets, auto, blood - for pt's fine needle aspiration, ultrasound guided, thyroid (PROC) 2020 021 [email or web address] 1 [facility] (One Call Scheduling), [address] [place], [address], 1 09:57:05 PT/PTT, plasma - for pt's fine needle aspiration, ultrasound guided, thyroid (PROC) 2020 021 [email or web address] 1 [facility] (One Call Scheduling), [address] [place], [address], 1 09:56:49 TSH + free T4, serum 2020 021 [email or web address] 1 [facility] (One Call Scheduling), [address] [place], [address], 1 09:56:35 TSH + free T4, serum 2019 020 [place] [place] [facility], [address], [address], [place], [address], 0 17:29:34 T3, free, serum or plasma 2019 020 [place] [place] [facility], [address], [address], [place], [address], 0 17:29:34 Referral general surgeon referral 2021 022 [place] Richardson MD, [address] [facility], [address], [place], [address], 2 15:59:17 Procedures fine needle aspiration, ultrasound guided, thyroid (PROC) 2020 021 [email or web address] 1 [facility] (Imaging), [address] [place], [address], 1 12:04:31 Surgeries None recorded. Imaging US, abdomen 2020 021 [facility] (One Call Scheduling), [address] [place], [address], 2 16:45:56 US, neck 2019 020 [facility] (One Call Scheduling), [address] [place], [address], 1 10:46:25 Medication Orders albuterol sulfate HFA 90 mcg/actuati on aerosol inhaler 2023 024 [facility]armacy #[id number], [address], [place], [address], 4 13:03:16 hydrochloro thiazide 25 mg tablet 2023 024 [facility]armacy #[id number], [address], [place], [address], 4 13:01:11 pantoprazol e 40 mg tablet,mey yed release 2023 024 [id number] [address], [place], [address], 4 13:01:12 albuterol sulfate HFA 90 mcg/actuati on aerosol inhaler 2021 022 [id number], [address], [place], [address], 2 10:49:07 pantoprazol e 40 mg tablet,mey yed release 2021 022 [id number], [address], [place], [address], 2 10:49:06 hydrochloro thiazide 25 mg tablet 2021 022 [id number], [address], [place], [address], 2 10:49:07 ProAir HFA 90 mcg/actuati on aerosol inhaler [address] [address] In [facility], [facility] [place], [address], 2 10:34:36 pantoprazol e 40 mg tablet,mey yed release [address] [address] In [facility], [address] [place], [address], 2 10:34:05 hydrochloro thiazide 25 mg tablet 2020 021 [facility] [id number] In [facility], [address] [place], [address], 13:39:55 Patient TargetsNo targets recorded. Patient Instructions Encounter Date Encounter Id Patient Instructions Last Modified By Organization Details Last Modified Time 11/26/2021 [id number] body mass index: care instructions [email or web address] Not available 11/26/2021 10:49:00 learning about healthy weight [email or web address] Not available 11/26/2021 10:48:59 controlling your asthma: care instructions [email or web address] Not available 11/26/2021 10:49:00 learning about asthma Not available 11/26/2021 10:48:59 learning about high blood pressure Not available 11/26/2021 10:49:00 high cholesterol : care instructions [email or web address] Not available 11/26/2021 10:49:00 10/15/2023 [id number] learning about asthma [email or web address] Not available 10/15/2023 13:03:12 body mass index: care instructions [email or web address] Not available 10/15/2023 13:01:06 learning about healthy weight Not available 10/15/2023 13:01:05 high cholesterol : care instructions [email or web address] Not available 10/15/2023 13:01:06 Reason for Referral General Surgeon Referral for Cholelithiasis without obstruction Cholelithiasis Referring Physician: Philip High, Internal Medicine, Encounter Date: 11/26/2021 Results Created Date Observation Date Name Description Value Unit Range Abnormal Flag Note LastModifiedBy Organization Detail LastModifiedTime 11/22/1911/22/2020 COMP. METAB OLIC PANEL (14) glucose 96 mg/dL 65-99 Not Available [facility] ([facility]) [address] [place], [address], 11/22/2020 08:17:15 11/22/19 21 11/22/2020 COMP. METAB OLIC PANEL (14) BUN 14 mg/dL 6-24 Not Available [facility] ([facility]) [address] [place], [address], 11/22/2020 08:17:15 11/22/19 21 11/22/2020 COMP. METAB OLIC PANEL (14) creatinine 0.81 mg/dL 0.57-1 .00 Not Available [facility] ([facility]) [address] [facility], [place], [address], 11/22/2020 08:17:15 11/22/19 21 11/22/2020 COMP. METAB OLIC PANEL (14) eGFR if nonafricn AM 87 mL/mi n/1.7 3 >59 Not Available [facility] ([facility]) [address] [facility], [place], [address], 11/22/2020 08:17:15 11/22/19 21 11/22/2020 COMP. METAB OLIC PANEL (14) eGFR if africn AM 101 mL/mi n/1.7 3 >59 [facility] curre ntly repor ts eGFR in compl iance with the curre nt recom menda tions of the [facility] ation . [facility] will updat e repor ting as new guide lines are publi shed from the NKF-A SN Task force . Not Available [facility] ([facility]) [address] [facility], [place], [address], 11/22/2020 08:17:15 11/22/1911/22/2020 COMP. METAB OLIC PANEL (14) BUN/creatini ne ratio 17 9-23 Not Available [facility]) [address] [facility], [place], [address], 11/22/2020 08:17:15 11/22/19 21 11/22/2020 COMP. METAB OLIC PANEL (14) sodium 146 mmol/ L 134-14 4 above high normal Not Available [facility] ([facility]) [address] [place], [address], 11/22/2020 08:17:15 11/22/19 21 11/22/2020 COMP. METAB OLIC PANEL (14) potassium 3.6 mmol/ L 3.5-5. 2 Not Available [facility] ([facility]) [address] [place], [address], 11/22/2020 08:17:15 11/22/19 21 11/22/2020 COMP. METAB OLIC PANEL (14) chloride 104 mmol/ L 96-106 Not Available [facility] ([facility]) [address] [place], [address], 11/22/2020 08:17:15 11/22/19 21 11/22/2020 COMP. METAB OLIC PANEL (14) carbon dioxide, total 28 mmol/ L 20-29 Not Available [facility] ([facility]) [address] [place], [address], 11/22/2020 08:17:15 11/22/19 21 11/22/2020 COMP. METAB OLIC PANEL (14) calcium 9.8 mg/dL 8.7-10 .2 Not Available [facility] ([facility]) [address] [place], [address], 11/22/2020 08:17:15 11/22/19 21 11/22/2020 COMP. METAB OLIC PANEL (14) protein, total 7.4 g/dL 6.0-8. 5 Not Available [facility] ([facility]) [address] [place], [address], 11/22/2020 08:17:15 11/22/19 21 11/22/2020 COMP. METAB OLIC PANEL (14) albumin 4.2 g/dL 3.8-4. 8 Not Available [facility] ([facility]) [address] [place], [address], 11/22/2020 08:17:15 11/22/19 21 11/22/2020 COMP. METAB OLIC PANEL (14) globulin, total 3.2 g/dL 1.5-4. 5 Not Available [facility] ([facility]) [address] [facility] [place], [address], 11/22/2020 08:17:15 11/22/19 21 11/22/2020 COMP. METAB OLIC PANEL (14) A/G ratio 1.3 1.2-2. 2 Not Available [facility] ([facility]) [address] [facility] [place], [address], 11/22/2020 08:17:15 11/22/19 21 11/22/2020 COMP. METAB OLIC PANEL (14) bilirubin, total 0.2 mg/dL 0.0-1. 2 Not Available [facility] ([facility]) [address] [facility] [place], [address], 11/22/2020 08:17:15 11/22/19 21 11/22/2020 COMP. METAB OLIC PANEL (14) alkaline phosphatase 58 IU/L 44-121 Ple ase note refer ence inter lata plascencia e Not Available [facility] ([facility]) [address] [facility] [place], [address], 11/22/2020 08:17:15 11/22/19 21 11/22/2020 COMP. METAB OLIC PANEL (14) AST (SGOT) 25 IU/L 0-40 Not Available [facility] ([facility]) [address] [place], [address], 11/22/2020 08:17:15 11/22/19 21 11/22/2020 COMP. METAB OLIC PANEL (14) ALT (SGPT) 38 IU/L 0-32 above high normal Not Available [facility] ([facility]) [address] [place], [address], 11/22/2020 08:17:15 11/22/19 21 11/22/2020 CBC, PLATE LET, NO DIFFE RENTI AL WBC 10.6 x10e3 /uL 3.4-10 .8 Not Available [facility] ([facility]) [address] [facility], [place], [address], 11/22/2020 08:17:16 11/22/1911/22/2020 CBC, PLATE LET, NO DIFFE RENTI AL RBC 4.84 x10e6 /uL 3.77-5 .28 Not Available [facility] ([facility]) [address] [facility], [place], [address], 11/22/2020 08:17:16 11/22/1911/22/2020 CBC, PLATE LET, NO DIFFE RENTI AL hemoglobin 12.9 g/dL 11.1-1 5.9 Not Available [facility] ([facility]) [address] [facility], [place], [address], 11/22/2020 08:17:16 11/22/1911/22/2020 CBC, PLATE LET, NO DIFFE RENTI AL hematocrit 41.0 % 34.0-4 6.6 Not Available [facility] ([facility]) [address] [facility], [place], [address], 11/22/2020 08:17:16 11/22/1911/22/2020 CBC, PLATE LET, NO DIFFE RENTI AL MCV 85 fL 79-97 Not Available [facility] ([facility]) [address] [place], [address], 11/22/2020 08:17:16 11/22/1911/22/2020 CBC, PLATE LET, NO DIFFE RENTI AL MCH 26.7 pg 26.6-3 3.0 Not Available [facility] ([facility]) [address] [facility], [place], [address], 11/22/2020 08:17:16 11/22/1911/22/2020 CBC, PLATE LET, NO DIFFE RENTI AL MCHC 31.5 g/dL 31.5-3 5.7 Not Available [facility] ([facility]) [address] [facility], [place], [address], 11/22/2020 08:17:16 11/22/19 21 11/22/2020 CBC, PLATE LET, NO DIFFE RENTI AL RDW 14.3 % 11.7-1 5.4 Not Available [facility] ([facility]) [address] [facility], [place], [address], 11/22/2020 08:17:16 11/22/19 21 11/22/2020 CBC, PLATE LET, NO DIFFE RENTI AL platelets 333 x10e3 /uL 150-45 0 Not Available [facility] ([facility]) [address] [facility], [place], [address], 11/22/2020 08:17:16 11/22/1911/22/2020 CBC, PLATE LET, NO DIFFE RENTI AL NRBC ALUMNI COORDINATOR Not Available [facility] ([facility]) [address] [facility], [place], [address], 11/22/2020 08:17:16 11/22/19 21 11/22/2020 LIPID PANEL WITH LDL/H DL RATIO cholesterol, total 210 mg/dL 100-19 9 above high normal Not Available [facility] ([facility]) [address] [place], [address], 11/22/2020 08:17:16 11/22/19 21 11/22/2020 LIPID PANEL WITH LDL/H DL RATIO triglyceride s 103 mg/dL 0-149 Not Available [facility] ([facility]) [address] [place], [address], 11/22/2020 08:17:16 11/22/19 21 11/22/2020 LIPID PANEL WITH LDL/H DL RATIO HDL cholesterol 47 mg/dL >39 Not Available [facility]) [address] [place], [address], 11/22/2020 08:17:16 11/22/19 21 11/22/2020 LIPID PANEL WITH LDL/H DL RATIO VLDL cholesterol adams 19 mg/dL 5-40 Not Available [facility] ([facility]) [address] [place], [address], 11/22/2020 08:17:16 11/22/19 21 11/22/2020 LIPID PANEL WITH LDL/H DL RATIO LDL chol calc (rust) 144 mg/dL 0-99 above high normal Not Available [facility] ([facility]) [address] [place], [address], 11/22/2020 08:17:16 11/22/19 21 11/22/2020 LIPID PANEL WITH LDL/H DL RATIO comment: ALUMNI COORDINATOR Not Available [facility] ([facility]) [address] [place], [address], 11/22/2020 08:17:16 11/22/19 21 11/22/2020 LIPID PANEL WITH LDL/H DL RATIO LDL/HDL ratio 3.1 ratio 0.0-3. 2 LDL/H DL Ratio Men Women 1/2 Avg.R isk 1.0 1.5 Avg.R isk 3.6 3.2 2X Avg.R isk 6.2 5.0 3X Avg.R isk 8.0 6.1 Not Available [facility] ([facility]) [address] [place], [address], 11/22/2020 08:17:16 11/27/19 22 11/27/2021 LIPID PANEL cholesterol, total 183 mg/dL 100-19 9 Not Available [facility] ([facility]) [address] [place], [address], 11/27/2021 06:12:16 11/27/19 22 11/27/2021 LIPID PANEL triglyceride s 59 mg/dL 0-149 Not Available [facility] ([facility]) [address] [place], [address], 11/27/2021 06:12:16 11/27/19 22 11/27/2021 LIPID PANEL HDL cholesterol 49 mg/dL >39 Not Available [facility]) [address] [place], [address], 11/27/2021 06:12:16 11/27/19 22 11/27/2021 LIPID PANEL VLDL cholesterol adams 11 mg/dL 5-40 Not Available [facility] ([facility]) [address] [place], [address], 11/27/2021 06:12:16 11/27/19 22 11/27/2021 LIPID PANEL LDL chol calc (rust) 123 mg/dL 0-99 above high normal Not Available [facility] ([facility]) [address] [place], [address], 11/27/2021 06:12:16 11/27/19 22 11/27/2021 COMP. METAB OLIC PANEL (14) glucose 92 mg/dL 65-99 Eff ectiv e Septe mber 2021 Gluco se refer ence* * inter lata will be plascencia ing to: 70 - 99 Not Available [facility] ([facility]) [address] [place], [address], 11/27/2021 06:12:16 11/27/19 22 11/27/2021 COMP. METAB OLIC PANEL (14) BUN 13 mg/dL 6-24 Not Available [facility] ([facility]) [address] [place], [address], 11/27/2021 06:12:16 11/27/19 22 11/27/2021 COMP. METAB OLIC PANEL (14) creatinine 0.78 mg/dL 0.57-1 .00 Not Available [facility] ([facility]) [address] [place], [address], 11/27/2021 06:12:16 11/27/19 22 11/27/2021 COMP. METAB OLIC PANEL (14) eGFR 94 mL/mi n/1.7 3 >59 Not Available [facility] ([facility]) [address] [facility], [place], [address], 11/27/2021 06:12:16 11/27/19 22 11/27/2021 COMP. METAB OLIC PANEL (14) BUN/creatini ne ratio 17 9-23 Not Available [facility] ([facility]) [address] [facility], [place], [address], 11/27/2021 06:12:16 11/27/19 22 11/27/2021 COMP. METAB OLIC PANEL (14) sodium 143 mmol/ L 134-14 4 Not Available [facility] ([facility]) [address] [facility], [place], [address], 11/27/2021 06:12:16 11/27/19 22 11/27/2021 COMP. METAB OLIC PANEL (14) potassium 4.0 mmol/ L 3.5-5. 2 Not Available [facility] ([facility]) [address] [place], [address], 11/27/2021 06:12:16 11/27/19 22 11/27/2021 COMP. METAB OLIC PANEL (14) chloride 104 mmol/ L 96-106 Not Available [facility] ([facility]) [address] [place], [address], 11/27/2021 06:12:16 11/27/19 22 11/27/2021 COMP. METAB OLIC PANEL (14) carbon dioxide, total 24 mmol/ L 20-29 Not Available [facility] ([facility]) [address] [place], [address], 11/27/2021 06:12:16 11/27/19 22 11/27/2021 COMP. METAB OLIC PANEL (14) calcium 9.3 mg/dL 8.7-10 .2 Not Available [facility] ([facility]) [address] [facility] [place], [address], 11/27/2021 06:12:16 11/27/19 22 11/27/2021 COMP. METAB OLIC PANEL (14) protein, total 7.2 g/dL 6.0-8. 5 Not Available [facility] ([facility]) [address] [facility], [place], [address], 11/27/2021 06:12:16 11/27/19 22 11/27/2021 COMP. METAB OLIC PANEL (14) albumin 4.0 g/dL 3.8-4. 8 Not Available [facility] ([facility]) [address], [place], [address], 11/27/2021 06:12:16 11/27/19 22 11/27/2021 COMP. METAB OLIC PANEL (14) globulin, total 3.2 g/dL 1.5-4. 5 Not Available [facility] ([facility]) [address] [facility] [place], [address], 11/27/2021 06:12:16 11/27/19 22 11/27/2021 COMP. METAB OLIC PANEL (14) A/G ratio 1.3 1.2-2. 2 Not Available [facility] ([facility]) [address] [facility] [place], [address], 11/27/2021 06:12:16 11/27/19 22 11/27/2021 COMP. METAB OLIC PANEL (14) bilirubin, total 0.3 mg/dL 0.0-1. 2 Not Available [facility] ([facility]) [address] [facility] [place], [address], 11/27/2021 06:12:16 11/27/19 22 11/27/2021 COMP. METAB OLIC PANEL (14) alkaline phosphatase 69 IU/L 44-121 Not Available [facility]) [address] [facility], [place], [address], 11/27/2021 06:12:16 11/27/19 22 11/27/2021 COMP. METAB OLIC PANEL (14) AST (SGOT) 13 IU/L 0-40 Not Available [facility] ([facility]) [address] [facility], [place], [address], 11/27/2021 06:12:16 11/27/19 22 11/27/2021 COMP. METAB OLIC PANEL (14) ALT (SGPT) 11 IU/L 0-32 Not Available [facility] ([facility]) [address] [facility], [place], [address], 11/27/2021 06:12:16 11/27/19 22 11/27/2021 CBC, PLATE LET, NO DIFFE RENTI AL WBC 7.9 x10e3 /uL 3.4-10 .8 Not Available [facility] ([facility]) [address] [facility], [place], [address], 11/27/2021 06:12:17 11/27/19 22 11/27/2021 CBC, PLATE LET, NO DIFFE RENTI AL RBC 4.42 x10e6 /uL 3.77-5 .28 Not Available [facility] ([facility]) [address] [facility], [place], [address], 11/27/2021 06:12:17 11/27/19 22 11/27/2021 CBC, PLATE LET, NO DIFFE RENTI AL hemoglobin 12.1 g/dL 11.1-1 5.9 Not Available [facility] ([facility]) [address] [facility], [place], [address], 11/27/2021 06:12:17 11/27/19 22 11/27/2021 CBC, PLATE LET, NO DIFFE RENTI AL hematocrit 37.3 % 34.0-4 6.6 Not Available [facility] ([facility]) [address] [facility], [place], [address], 11/27/2021 06:12:17 11/27/19 22 11/27/2021 CBC, PLATE LET, NO DIFFE RENTI AL MCV 84 fL 79-97 Not Available [facility] ([facility]) [address] [facility], [place], [address], 11/27/2021 06:12:17 11/27/19 22 11/27/2021 CBC, PLATE LET, NO DIFFE RENTI AL MCH 27.4 pg 26.6-3 3.0 Not Available [facility] ([facility]) [address] [facility], [place], [address], 11/27/2021 06:12:17 11/27/19 22 11/27/2021 CBC, PLATE LET, NO DIFFE RENTI AL MCHC 32.4 g/dL 31.5-3 5.7 Not Available [facility] ([facility]) [address] [facility], [place], [address], 11/27/2021 06:12:17 11/27/19 22 11/27/2021 CBC, PLATE LET, NO DIFFE RENTI AL RDW 13.9 % 11.7-1 5.4 Not Available [facility] ([facility]) [address] [facility], [place], [address], 11/27/2021 06:12:17 11/27/19 22 11/27/2021 CBC, PLATE LET, NO DIFFE RENTI AL platelets 253 x10e3 /uL 150-45 0 Not Available [facility] ([facility]) [address] [facility], [place], [address], 11/27/2021 06:12:17 10/15/19 24 10/16/2023 LIPID PANEL cholesterol, total 200 mg/dL 100-19 9 above high normal Not Available [facility] ([facility]) [address] [place], [address], 10/16/2023 07:16:17 10/15/19 24 10/16/2023 LIPID PANEL triglyceride s 62 mg/dL 0-149 Not Available [facility] ([facility]) [address] [facility] [place], [address], 10/16/2023 07:16:17 10/15/19 24 10/16/2023 LIPID PANEL HDL cholesterol 55 mg/dL >39 Not Available [facility] ([facility]) [address] [place], [address], 10/16/2023 07:16:17 10/15/19 24 10/16/2023 LIPID PANEL VLDL cholesterol adams 11 mg/dL 5-40 Not Available [facility] ([facility]) [address] [place], [address], 10/16/2023 07:16:17 10/15/19 24 10/16/2023 LIPID PANEL LDL chol calc (rust) 134 mg/dL 0-99 above high normal Not Available [facility] ([facility]) [address] [place], [address], 10/16/2023 07:16:17 10/15/19 24 10/16/2023 COMP. METAB OLIC PANEL (14) glucose 79 mg/dL 70-99 Not Available [facility] ([facility]) [address] [place], [address], 10/16/2023 07:16:18 10/15/19 24 10/16/2023 COMP. METAB OLIC PANEL (14) BUN 16 mg/dL 6-24 Not Available [facility] ([facility]) [address] [place], [address], 10/16/2023 07:16:18 10/15/19 24 10/16/2023 COMP. METAB OLIC PANEL (14) creatinine 0.78 mg/dL 0.57-1 .00 Not Available [facility] ([facility]) [address], [place], [address], 10/16/2023 07:16:18 10/15/19 24 10/16/2023 COMP. METAB OLIC PANEL (14) eGFR 93 mL/mi n/1.7 3 >59 Not Available [facility] ([facility]) [address], [place], [address], 10/16/2023 07:16:18 10/15/19 24 10/16/2023 COMP. METAB OLIC PANEL (14) BUN/creatini ne ratio 21 9-23 Not Available [facility]) [address], [place], [address], 10/16/2023 07:16:18 10/15/19 24 10/16/2023 COMP. METAB OLIC PANEL (14) sodium 144 mmol/ L 134-14 4 Not Available [facility] ([facility]) [address] [facility], [place], [address], 10/16/2023 07:16:18 10/15/19 24 10/16/2023 COMP. METAB OLIC PANEL (14) potassium 4.3 mmol/ L 3.5-5. 2 Not Available [facility] ([facility]) [address], [place], [address], 10/16/2023 07:16:18 10/15/19 24 10/16/2023 COMP. METAB OLIC PANEL (14) chloride 105 mmol/ L 96-106 Not Available [facility] ([facility]) [address] [facility], [place], [address], 10/16/2023 07:16:18 10/15/19 24 10/16/2023 COMP. METAB OLIC PANEL (14) carbon dioxide, total 25 mmol/ L 20-29 Not Available [facility] ([facility]) [address] [facility], [place], [address], 10/16/2023 07:16:18 10/15/19 24 10/16/2023 COMP. METAB OLIC PANEL (14) calcium 9.5 mg/dL 8.7-10 .2 Not Available [facility] ([facility]) [address], [place], [address], 10/16/2023 07:16:18 10/15/19 24 10/16/2023 COMP. METAB OLIC PANEL (14) protein, total 7.3 g/dL 6.0-8. 5 Not Available [facility] ([facility]) [address], [place], [address], 10/16/2023 07:16:18 10/15/19 24 10/16/2023 COMP. METAB OLIC PANEL (14) albumin 4.2 g/dL 3.9-4. 9 Not Available [facility] ([facility]) [address] [facility] [place], [address], 10/16/2023 07:16:18 10/15/19 24 10/16/2023 COMP. METAB OLIC PANEL (14) globulin, total 3.1 g/dL 1.5-4. 5 Not Available [facility] ([facility]) [address] [facility], [place], [address], 10/16/2023 07:16:18 10/15/19 24 10/16/2023 COMP. METAB OLIC PANEL (14) bilirubin, total <0.2 mg/dL 0.0-1. 2 Not Available [facility] ([facility]) [address] [facility], [place], [address], 10/16/2023 07:16:18 10/15/19 24 10/16/2023 COMP. METAB OLIC PANEL (14) alkaline phosphatase 82 IU/L 44-121 Not Available [facility] ([facility]) [address] [facility], [place], [address], 10/16/2023 07:16:18 10/15/19 24 10/16/2023 COMP. METAB OLIC PANEL (14) AST (SGOT) 17 IU/L 0-40 Not Available [facility] ([facility]) [address] [facility], [place], [address], 10/16/2023 07:16:18 10/15/19 24 10/16/2023 COMP. METAB OLIC PANEL (14) ALT (SGPT) 16 IU/L 0-32 Not Available [facility] ([facility]) [address] [facility], [place], [address], 10/16/2023 07:16:18 10/15/1910/16/2023 TSH RFX ON ABNOR MAL TO FREE T4 TSH 1.360 uIU/m L 0.450- 4.500 Not Available [facility] ([facility]) [address] [facility], [place], [place], [id number], 10/16/2023 07:16:18 10/15/19 24 10/16/2023 CBC, PLATE LET, NO DIFFE RENTI AL WBC 10.4 x10e3 /uL 3.4-10 .8 Not Available [facility] ([facility]) [address] [facility], [place], [address], 10/16/2023 07:16:19 10/15/19 24 10/16/2023 CBC, PLATE LET, NO DIFFE RENTI AL RBC 4.50 x10e6 /uL 3.77-5 .28 Not Available [facility] ([facility]) [address] [facility], [place], [address], 10/16/2023 07:16:19 10/15/1910/16/2023 CBC, PLATE LET, NO DIFFE RENTI AL hemoglobin 12.5 g/dL 11.1-1 5.9 Not Available [facility] ([facility]) [address] [facility], [place], [address], 10/16/2023 07:16:19 10/15/19 10/16/2023 CBC, PLATE LET, NO DIFFE RENTI AL hematocrit 39.8 % 34.0-4 6.6 Not Available [facility] ([facility]) [address] [facility], [place], [address], 10/16/2023 07:16:19 10/15/19 24 10/16/2023 CBC, PLATE LET, NO DIFFE RENTI AL MCV 88 fL 79-97 Not Available [facility] ([facility]) [address] [facility], [place], [address], 10/16/2023 07:16:19 10/15/19 24 10/16/2023 [id number]|2024-07-20 18:57:00|2024-07-20 18:56:00|XMS_ITS|MAURA PICKETT|External Medical Summaries|[id number]|" Clinical Summary Created on: July 20, 2024 Radha Jerome : 1975 Sex: Female Author Organization 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 Gender Identity Not on file Sexual Orientation Not on file Obstetrics History Last Filed Vital Signs Vital Sign Reading Time Taken Comments Blood Pressure 157/91 04/16/2020 3:24 PM 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
[2024-07-20 19:05] VITALS: BP 168/106; PULSE 99; RESP 18; TEMP 36.6; O2SAT 100
--- NOTE | 2024-07-20 19:10 | ED_ITS ---
HPI - Head Injury General Chief complaint: Head Injury Stated complaint: fall, head injury Time Seen by Provider: 07/20/24 18:58 History of Present Illness HPI Narrative: 49-year-old female with a past medical history including hypertension and goiter. Patient does not emergency room with a closed head injury. Patient states that she was walking when she tripped and fell into the door frame hitting the right side of her face. Denies any blood thinner use or loss consciousness. She reports feeling dizzy and lightheaded at this time and has some pain radiating down the right side of her face. Did not take anything for pain prior to arrival. Was otherwise in her normal state of health. States that the fall was mechanical in nature. Is unclear of her tetanus status. No reported vomiting, mental status changes, weakness, neuropathy, sensory changes, incontinence or incoordination. Related Data Home Medications Medication Instructions Recorded Confirmed Last Taken Type albuterol sulfate 90 mcg/actuation inhalation 11/14/20 Unknown History aerosol inhaler hydrochlorothiazide 25 mg tablet 11/14/20 Unknown History loratadine 10 mg tablet mg 11/14/20 Unknown History pantoprazole 40 mg tablet,delayed PO 11/14/20 Unknown History release Allergies Allergy/AdvReac Type Severity Reaction Status Date / Time No Known Allergies Allergy Verified 07/20/24 18:54 Review of Systems Review of Systems: As reviewed above in HPI Exam Narrative: GENERAL: [Well-appearing, well-nourished, and in no acute distress.] HEAD: Normocephalic, right-sided eyebrow laceration that appears about 1.5 cm in length and somewhat stellate. EYES: [PERRLA and EOMI.] ENT: Nares clear, no rhinorrhea or epistaxis. Mucous membranes moist. NECK: Supple. CHEST: [Clear to auscultation. No respiratory distress.] HEART: [Regular rate and rhythm]. No murmur heard. [Normal peripheral pulses.] ABDOMEN: [Soft, nondistended], [nontender], [No rigidity or guarding] EXTREMITIES: Normal range of motion. [No edema.] SKIN: Warm, dry, no rash. NEURO: [No focal deficits]. Alert and oriented [x3.] PSYCH: [Normal mood and affect.] Course Vital Signs Vital signs: Vital Signs Temperature 36.6 C 07/20/24 19:05 Pulse Rate 99 05/14/25 19:05 Respiratory Rate 18 07/20/24 19:05 Blood Pressure 168/106 H 07/20/24 19:05 Pulse Oximetry 100 07/20/24 19:05 Oxygen Delivery Room Air 07/20/24 19:05 Temperature 36.6 C 07/20/24 19:05 Pulse Rate 99 07/20/24 19:05 Respiratory Rate 18 07/20/24 19:05 Blood Pressure 168/106 H 07/20/24 19:05 Pulse Oximetry 100 07/20/24 19:05 Oxygen Delivery Room Air 07/20/24 19:05 Procedures Laceration Laceration 1: Date: 07/20/24 Time: 20:58 Site: face Side (If applicable): right Size (cm): 1.5 Description: stellate and clean Depth: simple, single layer Local Anesthetic: lidocaine 1% and with epi Amount of anesthesia used (mL): 3 Pre-repair: wound explored and irrigated extensively ====== Skin Level ====== Skin layer closed with: nylon Size (cm): 5-0 Number of sutures: 4 Technique: simple, interrupted ====== Subcutaneous Layer ====== ====== Muscle Layer ====== ====== Tendon Layer ====== Dressing: Gauze dressing MDM - Head Injury MDM Narrative Medical decision making narrative: 49-year-old female presenting to the emergency department for closed head injury. Patient states she fell forward into a door frame and struck the right side of her face and head. She has a 1.5 cm laceration is stellate in her right eyebrow. Does not report any blood thinner use. No history of seizures or loss of consciousness. She states she feels dizzy lightheaded at this time but has no other complaints besides pain. Her neurological assessment is normal. Her tetanus status will be updated here. Her vital signs show some stable hypertension but no severe range. No tachypnea, tachycardia, hypoxic or fevers. CT head was ordered, let gel was applied to the wound for anesthesia, tetanus was updated. She was given [place] for analgesia and re-evaluated. CT scan was unremarkable for any acute intracranial pathology or injury. She had her laceration repaired at bedside and had improvement with pain control after medications. Tetanus updated. She was discharged home at this time. Instructed to return in 10-14 days for wound check and suture removal. Medical Records Attestation: I reviewed the patient's medical records. Imaging Data Attestation: I personally reviewed and interpreted this imaging study as follows: My impression: Impressions Head CT 07/20/24 19:35 IMPRESSION: No acute intracranial findings. Discharge Plan Discharge Clinical Impression: Closed head injury, Forehead laceration Patient Disposition: Home Condition: Stable Instructions: Antibiotic Form, Head Injury (ED), Head Laceration (ED) Additional Instructions: Follow-up in 10-14 days for wound check and suture removal. Follow-up with primary care provider, urgent care or return to the emergency department. Return with any emergent concerns otherwise and keep the area clean and dry and you can apply bacitracin or Neosporin to the wound as needed. Patient Language: Mongolian Prescriptions: No Action ondansetron 4 mg tablet,disintegrating 4 mg PO Q4H Qty: 10 0RF famotidine 20 mg tablet 20 mg PO BID Qty: 30 0RF pantoprazole 40 mg tablet,delayed release (DR/EC) PO hydrochlorothiazide 25 mg tablet albuterol sulfate 90 mcg/actuation HFA aerosol inhaler INHALATION loratadine 10 mg tablet prednisone 10 mg tablet 10 mg PO BID Qty: 10 0RF meclizine 25 mg tablet 25 mg PO BID PRN (Reason: dizziness) Qty: 20 0RF hydrochlorothiazide 25 mg tablet 25 mg PO DAILY Qty: 30 0RF Follow-up/Referrals: Lennox,Philip Mar MD [Primary Care Provider] - Time of Disposition: 21:02
[2024-07-20] MEDS: HYDROcodone/acetaminophen (*CRX) 5-325 MG TABLET 1 TAB PO (19:14)
[2024-07-20] MEDS: TETANUS,DIPHTHERIA,AC PERTUSSIS ADULT (0.5 ML) BOOSTRIX IM (19:15)
[2024-07-20] MEDS: LIDOCAINE, EPINEPHRINE, TETRACAINE VISCOUS SOLN 3 ML TOPICAL (19:15)
--- OUTSIDE RECORDS SUMMARY | 2024-07-20 19:18 | XMS_ITS | Referral Summary ---
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 Gender Identity Not on file Sexual Orientation Not on file Last Filed Vital Signs Vital Sign Reading Time Taken Comments Blood Pressure 157/91 04/16/2020 3:24 PM BOBBIN DOFFER Pulse 96 04/16/2020 3:24 PM BOBBIN DOFFER Temperature - - Respiratory Rate - - Oxygen Saturation - - Inhaled Oxygen Concentration - - Weight 139.1 kg (306 lb 9.6 oz) 021 12:41 PM CDT Height - - Body Mass Index - - Plan of Treatment Not on file Insurance [facility] Care Teams Rn Imcu Relationship Specialty Start Date End Date Nadia Colunga MD [address] [place] [id number] PCP - General 04/20/20
--- OUTSIDE RECORDS SUMMARY | 2024-07-20 19:18 | XMS_ITS | Clinical Summary ---
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
--- OUTSIDE RECORDS SUMMARY | 2024-07-20 19:19 | XMS_ITS | CONTINUITY OF CARE DOCUMENT ---
Author Name olga espinoza Address Unknown Organization [facility] Address [address] [facility] [address] [place] [address] Phone [phone] Care Team Providers Care Skiver Blockers Name Role Phone Chito WEBBER, Home Unavailable LEONEL ABBOTT MD Unavailable [phone] LEONEL ABBOTT MD Unavailable PROBLEMS Condition Status [...] MD FAMILY HX HEART DISEASE active Home olvier MD DIZZINESS active Home [facility] MD DYSPNEA ON EXERTION;NEG CXR PER PT 2009 active Home [facility] MD CHEST PAIN, ATYPICAL active Home Smith ENCOUNTERS Date Type Provider Location Encounter Diag nosis - In-person encounter Office Visit [facility] MD [facility] GASTROESOPHAGEAL REFLUX DISEASE, HX OFHYPERTENSION, ESSENTIAL;LABS [...] sanches RN weight E&M 261 [lb_av] Brett Frnaz RN RESULTS Date Observation Value Provider Reference [...] Srinath Aleman protein, total, serum 6.4 g/dL [facility] albumin, serum 3.1 g/dL [facility] bilirubin, serum, total 0.10 mg/dL [facility] alkaline phosphatase, serum 64 1/L [facility] alanine aminotransferase (SGPT), serum 23 1/L [facility] aspartate aminotransferase (SGOT), serum 10 1/L [facility] calcium, serum 8.0 mg/dL [facility] blood glucose, fasting 92 mg/dL [facility] creatinine, serum 0.70 mg/dL [facility] urea nitrogen, blood 11 mg/dL [facility] carbon dioxide, serum, total 28 mmol/L [facility] chloride, serum 105 mmol/L [facility] potassium, serum 3.9 mmol/L [facility] sodium, serum 137 mmol/L [facility] platelet count 240 10*3/uL [facility] red blood cell distribution width 14.5 % [facility] mean corpuscular hemoglobin concentration, RBC 32.2 g/dL [facility] mean corpuscular hemoglobin, RBC 27.1 pg [facility] mean corpuscular volume, RBC 84.3 fL [facility] hematocrit, blood 33.9 % [facility] hemoglobin, blood 10.9 g/dL [facility] erythrocyte (RBC) count 4.02 10*6/mm3 [facility] monocytes as percent of blood leukocytes 10.1 % [facility] lymphocytes as percent of blood leukocytes 38.7 % [facility] leukocyte count, blood 8.1 10*3/mm3 [facility] Helicobacter pylori screen, serum Negative [facility] urate crystals, amorphous, urine, semiquantitative Occasional [facility] Ash mucus on urinalysis Moderate [facility] [place] urine crystals, microscopic None [facility] Ash epithelial cells, urine, per microscopy Many [facility] [place]etrist Ash casts, urine None [facility] Ash WBC urine on microscopy 1-3 [facility] bacteria, urine microscopy None [facility] Ash RBC urine by microscopy None [facility] Ash leukocyte esterase, urine, by dipstick Negative [facility] Ash urobilinogen, urine, semiquantitative (dipstick) Normal [facility] Ash nitrite, urine, semiquantitative Negative [facility] Ash RBC, urine, dipstick Negative [facility] Ash bilirubin, urine Negative [facility] Ash ketones, urine, by test strip Negative [facility] Ash glucose, urine, semiquantitative Normal [facility] Ash protein, urine, semiquantitative (dipstick) Negative [facility] Ash pH, urine, semiquantitative 6.0 [facility] specific gravity, urine 1.020 [facility] Ash urine color Mary [facility] appearance, urine Hazy [facility] triglyceride, serum, fasting 60 mg/dL [facility] Ash HDL cholesterol, serum 44 mg/dL [facility] Ash LDL cholesterol, serum 101 mg/dL [facility] Ash cholesterol, serum 157 mg/dL [facility] Ash lipase, serum 310 1/L [facility] amylase, serum 69 1/L [facility] HISTORY OF MEDICATION USE Medication Status Instructions [...] Policy type / Coverage type Lucia red republican [place] MEDICAID (2) Medicaid [id number] TREATMENT PLAN Date Name Performer consult due to test results: O rders: S pirometry (CPT-08078) H olter Monitor 24 Hr (CPT-93472) Home Dale MD consult due to test [...] ..... One tab. daily Orders: S pirometry (CPT-84267) H olter Monitor 24 Hr (CPT-17739) Home Dale MD consult due to test results: O rders: S pirometry (CPT-16790) H olter Monitor 24 Hr (CPT-37797) Home Dale MD consult due to test results Ana Luisa Dale MD consult due to test results: H er updated medication list for this problem includes: Hydrochlorothiazide 12.5 Mg Caps (Hydrochlorothiazide) ..... One tab. daily Orders: S pirometry (CPT-97707) H olter Monitor 24 Hr (CPT-47980) Home Dale MD consult due to test results: O rders: S leep Study (*) C omplete Echo (CPT-48983) Home Dale MD consult due to test results: O rders: S leep Study (*) C omplete Echo (CPT-73280) S pirometry (CPT-37358) H olter Monitor 24 Hr (CPT-28432) Home Dale MD consult due to test results: O rders: S pirometry (CPT-22436) H olter Monitor 24 Hr (CPT-98424) Home Dale MD consult due to test results: O rders: S leep Study (*) C omplete Echo (CPT-89117) S pirometry (CPT-14832) H olter Monitor 24 Hr (CPT-64863) Home Dale MD consult due to test results: B P today: 131/91 Prior BP: / () C HOL: 157 (03/26/2009) LDL: 101 (03/26/2009) HDL: 44 (03/26/2009) T (03/26/2009) Orders: S leep Study (*) C omplete Echo (CPT-97017) S pirometry (CPT-99338) H olter Monitor 24 Hr (CPT-06907) Home Dale MD consult due to test [...] S leep Study (*) C omplete Echo (CPT-61130) Home Dale MD Date Name Gallbaladder Ultraso und Cardiac Cath - CNE Holter Monitor 24 Hr Spirometry Complete Echo Sleep Study
[2024-07-20 21:00] VITALS: BP 116/95; PULSE 74; RESP 19; O2SAT 100
[2024-07-20] MEDS: LIDO 1%/EPINEPHRINE 1:100,000 20 ML VIAL 10 ML INFILTRATE (21:01)
== END 2024-07-20 21:08 | disposition home or self-care (01) ==
PROVIDERS: Emergency Provider Student in an Organized Health Care Education/Training Program; PCP Internal Medicine Gastroenterology
DX: S01.111A Laceration without foreign body of right eyelid and periocular area, initial encounter (principal); Z23 Encounter for immunization; I10 Essential (primary) hypertension; W01.198A Fall on same level from slipping, tripping and stumbling with subsequent striking against other object, initial encounter
CPT/HCPCS: 12011; 70450; 90471; 90715; 99284; A9270; J2004

== ENCOUNTER 2024-08-11 15:26 | Emergency (ER) | payer SELFPAY ==
--- NOTE | ~2024-08-11 | XR_ITS ---
XR chest 2V Ordering provider: Chiqui Salcido APRN History: 49 years Female with . midsternal chest pain . Comparison: November 09, 2023 FINDINGS: MEDIASTINUM: The cardiac silhouette is not enlarged. LUNGS: No infiltrates, effusions or pneumothorax. OTHER: No free air under the diaphragm. Degenerative the spine. IMPRESSION: No acute cardiopulmonary pathology. Reviewed, dictated and finalized at location A.
--- NOTE | ~2024-08-11 | CT_ITS ---
CT chest abdomen pelvis w con Ordering provider: Chiqui Salcido APRN History: 49 years Female with . chest and abdominal pain . Comparison: November 14, 2021 Technique: CT chest with IV contrast. CT abdomen and pelvis CT abdomen and pelvis with IV and with or al contrast. Radiation reduction technique utilized.The dose-length product was 2021.76 mGy-cm. 100 m L Omnipaque 350 was given IV. FINDINGS: CHEST: --VISUALIZED THORACIC INLET: Enlarged Left lobe of the thyroid. Ultrasound evaluation is advised. --MEDIASTINUM: Aorta/coronary arteries: The thoracic aorta is normal. Heart/other: The heart is not enlarged. Lymph nodes: No mediastinal or hilar adenopathy. --LUNGS: No pulmonary nodules or masses. No infiltrates or effusions. No pneumothorax. Dependent atel ectatic changes. --MUSCULOSKELETAL: Soft tissues: Large anterior abdominal wall hernia with fat content in the pelvis. The superficial so ft tissues are normal. Bones: Age appropriate degenerative changes of the spine. No suspicious bony lytic or sclerotic lesio ns. Bilateral sacroiliitis. Bilateral hip osteoarthritic changes. ABDOMEN/PELVIS: --MUSCULOSKELETAL: Bones: Age appropriate degenerative changes of the spine. No suspicious bony lytic or sclerotic lesio ns. Superficial soft tissues: The superficial soft tissues are normal. --UPPER ABDOMINAL ORGANS: Liver: Normal. Gallbladder: Normal. Spleen: Normal. Stomach/duodenum: Normal. Pancreas: Normal. Adrenals: Normal. Kidneys: Normal. --PELVIC ORGANS: The bladder is normal. No bladder stones. Enlarged uterus. Evaluation advised. --BOWEL AND MESENTERY: Colon: No evidence of diverticulitis.. Normal appendix. Small Bowel: Normal. No obstruction. Peritoneum/mesentery: No free air or free fluid. No mesenteric lymphadenopathy. --RETROPERITONEUM: Normal aorta. No retroperitoneal lymphadenopathy. IMPRESSION: CHEST: 1. Grossly Enlarged left lobe of the thyroid. Further evaluation advised. 2. No acute cardiopulmonary pathology. ABDOMEN/PELVIS: 1. No evidence of appendicitis, diverticulitis or intestinal obstruction. 2. Large anterior abdominal wall hernia in the area of the pelvis with fat content. 3. Enlarged uterus. Further evaluation advised. Reviewed, dictated and finalized at location A. IMPRESSION: CHEST: 1. Grossly Enlarged left lobe of the thyroid. Further evaluation advised. 2. No acute cardiopulmonary pathology. ABDOMEN/PELVIS: 1. No evidence of appendicitis, diverticulitis or intestinal obstruction. 2. Large anterior abdominal wall hernia in the area of the pelvis with fat con tent. 3. Enlarged uterus. Further evaluation advised.
[2024-08-11 15:38] VITALS: BP 162/82; PULSE 86; RESP 20; TEMP 36.7; O2SAT 100
--- NOTE | 2024-08-11 16:30 | ECG_ITS ---
Test Date: 2024-08-11 16:57:23 Measurements Intervals [place] Rate: 83 P: 57 AL: 188 QRS: 11 QRSD: 104 T: 20 QT: 379 QTc: 447 Interpretive Statements SINUS RHYTHM VOLTAGE CRITERIA FOR LVH CONSIDER INFERIOR INFARCT, AGE INDETERMINATE BASELINE WANDER- V3 ABNORMAL ECG Compared to ECG 11/09/2023 09:04:36 NO SIGNIFICANT CHANGE Electronically Signed On 08-11-2024 19:16:36 CDT by Higinio Lopez D.O.
[2024-08-11 16:34] LABS: BEDSIDEPREGUCG Negative (Negative)
--- NOTE | 2024-08-11 16:34 | ED.CHESTPAIN ---
HPI - Chest Pain General Chief Complaint: Abdominal Pain <Chiqui Salcido APRN - Last Filed: 08/11/24 19:27> Stated Complaint: EPIGASTRIC PAIN & SUTURE REMOVAL <Chiqui Salcido APRN - Last Filed: 08/11/24 19:27> Time Seen by Provider: 08/11/24 15:36 <Chiqui Salcido APRN - Last Filed: 08/11/24 19:27> History of Present Illness HPI narrative: Patient is a 49-year-old female who presents to the ER with right upper tooth pain, suture removal, and midsternal chest/abdominal pain. She reports she has a history of GERD but reports this chest pain is different. Patient also endorses a history of gallstones and is worried this may be related to her gallbladder. She endorses pain radiates to her back. Patient describes her chest pain as ?on fire. She reports she had her last bowel movement this morning and it was normal for her. Patient endorses a history of high blood pressure and reports ?I take a water pill. She denies any urinary symptoms, shortness of breath, or recent fevers. <Chiqui Salcido APRN - Last Filed: 08/11/24 19:27> Related Data Home Medications: Home Medications ?Medication ?Instructions ?Recorded ?Confirmed ?Last Taken ?Type albuterol sulfate 90 mcg/actuation inhalation 11/14/20 Unknown History aerosol inhaler hydrochlorothiazide 25 mg tablet 11/14/20 Unknown History loratadine 10 mg tablet mg 11/14/20 Unknown History pantoprazole 40 mg tablet,delayed PO 11/14/20 Unknown History release <Chiqui Salcido APRN - Last Filed: 08/11/24 19:27> Allergies/Adverse Reactions: Allergies Allergy/AdvReac Type Severity Reaction Status Date / Time No Known Allergies Allergy Verified 08/11/24 15:50 <Chiqui Salcido APRN - Last Filed: 08/11/24 19:27> Review of Systems Review of Systems: All systems reviewed & are unremarkable except as noted in HPI and below <Chiqui Salcido APRN - Last Filed: 08/11/24 19:27> Exam Narrative: GENERAL: Well appearing, obese, non-toxic, in no acute distress. HEAD: Normocephalic, atraumatic. Pt's R upper tooth (#6) shows significant decay with a small abscess between tooth and gum. No visible drainage. No significant redness to gums. Pt has four sutures in her R eyebrow with a healed, well-approximated wound NECK: Supple. No adenopathy, no masses. RESPIRATORY: Airway patent, respirations nonlabored. Clear to auscultation bilaterally, no rales, rhonchi, wheezing. CARDIOVASCULAR: Regular rate and rhythm without murmurs, rubs, or gallops. Peripheral pulses 2+ and equal bilaterally. ABDOMINAL: Soft, nontender, nondistended, no hepatosplenomegaly. Normoactive BS. MUSCULOSKELETAL: Moves all extremities. Strength/ROM intact without gross deformities. SKIN: Warm, dry, normal color. No rashes. NEURO: A&O X3. Speech clear. Cranial nerves II-XII intact. No ataxic movements. PSYCHIATRIC: Appropriate mood and affect. Normal interaction. <Chiqui Salcido APRN - Last Filed: 08/11/24 19:27> Course Course Emergency Course: patient updated on pending CT scan, agrees with plan of care <Casandra Wu PA-C - Last Filed: 08/11/24 20:45> Vital Signs Vital signs: Vital Signs Temperature 98.1 F 08/11/24 15:38 Pulse Rate 86 08/11/24 15:38 Respiratory Rate 20 08/11/24 15:38 Blood Pressure 162/82 H 08/11/24 15:38 Pulse Oximetry 100 08/11/24 15:38 Oxygen Delivery Room Air 08/11/24 15:38 Temperature 98.2 F 08/11/24 20:05 Pulse Rate 83 08/11/24 20:05 Respiratory Rate 17 08/11/24 20:05 Blood Pressure 145/84 H 08/11/24 20:05 Pulse Oximetry 100 08/11/24 20:05 Oxygen Delivery Room Air 08/11/24 15:38 <Chiqui Salcido APRN - Last Filed: 08/11/24 19:27> Vital Signs Temperature 98.1 F 08/11/24 15:38 Pulse Rate 86 08/11/24 15:38 Respiratory Rate 20 08/11/24 15:38 Blood Pressure 162/82 H 08/11/24 15:38 Pulse Oximetry 100 08/11/24 15:38 Oxygen Delivery Room Air 08/11/24 15:38 Temperature 98.2 F 08/11/24 20:05 Pulse Rate 83 08/11/24 20:05 Respiratory Rate 17 08/11/24 20:05 Blood Pressure 145/84 H 08/11/24 20:05 Pulse Oximetry 100 08/11/24 20:05 Oxygen Delivery Room Air 08/11/24 15:38 <Casandra Wu PA-C - Last Filed: 08/11/24 20:45> MDM - Chest Pain MDM Narrative Medical decision making narrative: Patient is a 49-year-old female who presents to the ER with right upper tooth pain, suture removal, and midsternal chest/abdominal pain. She reports she has a history of GERD but reports this chest pain is different. Patient also endorses a history of gallstones and is worried this may be related to her gallbladder. She endorses pain radiates to her back. Patient describes her chest pain as ?on fire. She reports she had her last bowel movement this morning and it was normal for her. Patient endorses a history of high blood pressure and reports ?I take a water pill. She denies any urinary symptoms, shortness of breath, or recent fevers. Labs Ordered: CBC, CMP, PTT, INR, troponin, UA, lipase Imaging Ordered: CT chest abdomen pelvis Medications Ordered: GI cocktail, 1L NS IV bolus 1914-Care signed out to Casandra Wu PA-C, at shift change pending CT scan results. <Chiqui Salcido APRN - Last Filed: 08/11/24 19:27> Differential Diagnosis Differential diagnosis: Likely atypical chest pain, costochondritis, chest pain and other (GERD, suture removal, abscess tooth) <Chiqui Salcido APRN - Last Filed: 08/11/24 19:27> Lab Data Attestation: I reviewed the patient's lab results. <Chiqui Salcido APRN - Last Filed: 08/11/24 19:27> Result diagrams: 08/11/24 16:38 08/11/24 16:38 <Chiqui Salcido APRN - Last Filed: 08/11/24 19:27> Labs: Lab Results 08/11/24 08/11/24 08/11/24 Range/Units 16:16 16:38 19:32 WBC 11.1 H (4.5-10.0) K/mm3 RBC 4.41 (4.2-5.4) M/mm3 Hgb 12.3 (12.0-15.0) g/dL Hct 39.1 (37.0-47.0) % MCV 88.7 (80-100) fl MCH 27.9 (26-34) pg MCHC 31.5 L (32-36) g/dl RDW 14.1 (11.5-14.5) % Plt Count 239 (150-375) k/mm3 MPV 10.3 (7.4-10.4) fl Immature Gran % (Auto) 0.3 (0-0.5) % Neut % (Auto) 51.4 (45.5-73.1) % Lymph % (Auto) 34.6 (18.3-44.2) % [place] % (Auto) 9.1 H (2.6-8.5) % Eos % (Auto) 4.1 (0-4.4) % Baso % (Auto) 0.5 (0.2-1.2) % Lymph # (Auto) 3.82 H (0.9-3.2) K/mm3 [place] # (Auto) 1.0 H (0.1-0.6) K/mm3 Eos # (Auto) 0.5 H (0-0.3) K/mm3 Baso # (Auto) 0.1 (0.0-0.1) K/mm3 Abs Immat Gran (auto) 0.03 (0.00-0.031) K/mm3 Absolute Neuts (auto) 5.7 (1.3-6.7) K/mm3 Absolute Nucleated RBC 0.000 (0.0-0.012) K/mm3 Nucleated RBC % 0.0 (0.0-0.2) % PT 13.0 (11.1-14.7) Seconds INR 1.0 APTT 26.2 (22.3-36.8) Seconds Sodium 141 (137-145) mmol/L Potassium 3.4 (3.4-5.0) mmol/L Chloride 111 H (98-107) mmol/L Carbon Dioxide 25 (22-30) mmol/L Anion Gap 5 (4-12) mmol/L BUN 14 (7-17) mg/dL Creatinine 0.58 L (0.7-1.0) mg/dL Estim Creat Clear Calc 136 ml/min Estimated GFR > 60 (59 - ) Glucose 92 (65-110) mg/dL Calcium 8.5 (8.4-10.2) mg/dL Total Bilirubin 0.3 (0.2-1.3) mg/dL AST 24 (14-36) U/L ALT 15 (6-35) U/L Alkaline Phosphatase 65 (38-126) U/L Troponin I < 0.012 < 0.012 (0.000-0.034) ng/mL Total Protein 7.2 (6.3-8.2) g/dL Albumin 3.9 (3.5-5.1) g/dL Lipase 344 H (23-300) U/L Urine Color Yellow (Yellow) Urine Appearance Cloudy H (Clear) Urine pH 5.0 (5.0-9.0) Ur Specific [place] 1.029 (1.001-1.035) Urine Protein Negative (Negative) mg/dL Urine Glucose (UA) Negative (Negative) mg/dL Urine Ketones Trace H (Negative) mg/dL Ur Blood (Man) Negative (Negative) Urine Nitrate Negative (Negative) Urine Bilirubin Negative (Negative) Urine Urobilinogen 1.0 (<2.0) mg/dL Add Ur Microanalysis Reviewed Leukocyte Esterase Rfl Negative (Negative) ABDIEL/UL Urine RBC 6-10 H (0-2) /hpf Urine WBC 0-5 (0-3) /hpf Ur Squamous Epith Cells Occasional (Few) /hpf Calcium Oxalate Crystal Present (None) /hpf Urine Bacteria None seen /hpf Urine Casts 0-2 POC Urine HCG, Qual Negative (Negative) <Chiqui Salcido, BE - Last Filed: 08/11/24 19:27> Lab Results 08/11/24 08/11/24 08/11/24 Range/Units 16:16 16:38 19:32 WBC 11.1 H (4.5-10.0) K/mm3 RBC 4.41 (4.2-5.4) M/mm3 Hgb 12.3 (12.0-15.0) g/dL Hct 39.1 (37.0-47.0) % MCV 88.7 (80-100) fl MCH 27.9 (26-34) pg MCHC 31.5 L (32-36) g/dl RDW 14.1 (11.5-14.5) % Plt Count 239 (150-375) k/mm3 MPV 10.3 (7.4-10.4) fl Immature Gran % (Auto) 0.3 (0-0.5) % Neut % (Auto) 51.4 (45.5-73.1) % Lymph % (Auto) 34.6 (18.3-44.2) % [place] % (Auto) 9.1 H (2.6-8.5) % Eos % (Auto) 4.1 (0-4.4) % Baso % (Auto) 0.5 (0.2-1.2) % Lymph # (Auto) 3.82 H (0.9-3.2) K/mm3 [place] # (Auto) 1.0 H (0.1-0.6) K/mm3 Eos # (Auto) 0.5 H (0-0.3) K/mm3 Baso # (Auto) 0.1 (0.0-0.1) K/mm3 Abs Immat Gran (auto) 0.03 (0.00-0.031) K/mm3 Absolute Neuts (auto) 5.7 (1.3-6.7) K/mm3 Absolute Nucleated RBC 0.000 (0.0-0.012) K/mm3 Nucleated RBC % 0.0 (0.0-0.2) % PT 13.0 (11.1-14.7) Seconds INR 1.0 APTT 26.2 (22.3-36.8) Seconds Sodium 141 (137-145) mmol/L Potassium 3.4 (3.4-5.0) mmol/L Chloride 111 H (98-107) mmol/L Carbon Dioxide 25 (22-30) mmol/L Anion Gap 5 (4-12) mmol/L BUN 14 (7-17) mg/dL Creatinine 0.58 L (0.7-1.0) mg/dL Estim Creat Clear Calc 136 ml/min Estimated GFR > 60 (59 - ) Glucose 92 (65-110) mg/dL Calcium 8.5 (8.4-10.2) mg/dL Total Bilirubin 0.3 (0.2-1.3) mg/dL AST 24 (14-36) U/L ALT 15 (6-35) U/L Alkaline Phosphatase 65 (38-126) U/L Troponin I < 0.012 < 0.012 (0.000-0.034) ng/mL Total Protein 7.2 (6.3-8.2) g/dL Albumin 3.9 (3.5-5.1) g/dL Lipase 344 H (23-300) U/L Urine Color Yellow (Yellow) Urine Appearance Cloudy H (Clear) Urine pH 5.0 (5.0-9.0) Ur Specific [place] 1.029 (1.001-1.035) Urine Protein Negative (Negative) mg/dL Urine Glucose (UA) Negative (Negative) mg/dL Urine Ketones Trace H (Negative) mg/dL Ur Blood (Man) Negative (Negative) Urine Nitrate Negative (Negative) Urine Bilirubin Negative (Negative) Urine Urobilinogen 1.0 (<2.0) mg/dL Add Ur Microanalysis Reviewed Leukocyte Esterase Rfl Negative (Negative) ABDIEL/UL Urine RBC 6-10 H (0-2) /hpf Urine WBC 0-5 (0-3) /hpf Ur Squamous Epith Cells Occasional (Few) /hpf Calcium Oxalate Crystal Present (None) /hpf Urine Bacteria None seen /hpf Urine Casts 0-2 POC Urine HCG, Qual Negative (Negative) <Casandra Wu PA-C - Last Filed: 08/11/24 20:45> Imaging Data Attestation: I personally reviewed and interpreted this imaging study as follows: <Chiqui Salcido APRN - Last Filed: 08/11/24 19:27> Radiologist's impression: Impressions Chest X-Ray 08/11/24 18:17 IMPRESSION: No acute cardiopulmonary pathology. <Chiqui Salcido APRN - Last Filed: 08/11/24 19:27> Impressions Chest X-Ray 08/11/24 18:17 IMPRESSION: No acute cardiopulmonary pathology. ITS Impressions Chest X-Ray 08/11/24 18:17 IMPRESSION: No acute cardiopulmonary pathology. Chest/Abdomen/Pelvis CT 08/11/24 19:21 IMPRESSION: CHEST: 1. Grossly Enlarged left lobe of the thyroid. Further evaluation advised. 2. No acute cardiopulmonary pathology. ABDOMEN/PELVIS: 1. No evidence of appendicitis, diverticulitis or intestinal obstruction. 2. Large anterior abdominal wall hernia in the area of the pelvis with fat content. 3. Enlarged uterus. Further evaluation advised. <Casandra Wu PA-C - Last Filed: 08/11/24 20:45> Discharge Plan Discharge Clinical Impression: Chest pain due to GERD, Abscessed tooth, Pain due to dental caries, Encounter for removal of sutures, Enlarged uterus, Enlarged thyroid <Chiqui Salcido APRN - Last Filed: 08/11/24 19:27> Patient Disposition: Home <Chiqui Salcido APRN - Last Filed: 08/11/24 19:27> Condition: Stable <Chiqui Salcido APRN - Last Filed: 08/11/24 19:27> Instructions: Antibiotic Form, Dental Abscess (ED), GERD (Gastroesophageal Reflux Disease) (ED), Stitches Removal (ED) <Chiqui Salcido APRN - Last Filed: 08/11/24 19:27> Additional Instructions: Please return to the ER with any worsening symptoms. Follow-up with a primary care provider and dentist as soon as possible. Take all medications as prescribed, including regularly scheduled medications. Please complete your full dose of antibiotics. The radiologist noted your uterus and thyroid looked enlarged on your CT scan. Follow up with gynecology and primary care for further evaluation <Chiqui Salcido APRN - Last Filed: 08/11/24 19:27> Patient Language: [place] <Chiqui Salcido APRN - Last Filed: 08/11/24 19:27> Prescriptions: New ibuprofen 800 mg tablet 800 mg PO TID PRN (Reason: pain) Qty: 30 0RF lidocaine HCl [Lidocaine Viscous] 2 % solution 1 applic mucous membrane QID PRN (Reason: pain) Qty: 300 0RF amoxicillin-pot clavulanate 875-125 mg tablet 1 tablet PO Q12H Qty: 20 0RF No Action ondansetron 4 mg tablet,disintegrating 4 mg PO Q4H Qty: 10 0RF famotidine 20 mg tablet 20 mg PO BID Qty: 30 0RF pantoprazole 40 mg tablet,delayed release (DR/EC) PO hydrochlorothiazide 25 mg tablet albuterol sulfate 90 mcg/actuation HFA aerosol inhaler INHALATION loratadine 10 mg tablet prednisone 10 mg tablet 10 mg PO BID Qty: 10 0RF meclizine 25 mg tablet 25 mg PO BID PRN (Reason: dizziness) Qty: 20 0RF hydrochlorothiazide 25 mg tablet 25 mg PO DAILY Qty: 30 0RF <Chiqui Salcido APRN - Last Filed: 08/11/24 19:27> Follow-up/Referrals: PHYSICIAN,RESEARCH AND DEVELOPMENT SCIENTIST [Non-Staff] - Armen Villegas MD [Physician] - (primary care) Madhu Rehman MD [Physician] - <Chiqui Salcido APRN - Last Filed: 08/11/24 19:27> Stand Alone Forms: Work/School Release IP <Chiqui Salcido APRN - Last Filed: 08/11/24 19:27>
[2024-08-11 16:47] LABS: Basophils Absolute Auto 0.1 K/mm3 (0.0-0.1); Basophils Percent Auto 0.5 % (0.2-1.2); Eosinophils Absolute Auto 0.5 K/mm3 (0-0.3); Eosinophils Percent Auto 4.1 % (0-4.4); Hematocrit 39.1 % (37.0-47.0); Hemoglobin 12.3 g/dL (12.0-15.0); Immature Granulocyte Absolute 0.03 K/mm3 (0.00-0.031); Immature Granulocyte Percent A 0.3 % (0-0.5); Lymphocytes Absolute Auto 3.82 K/mm3 (0.9-3.2); Lymphocytes Percent Auto 34.6 % (18.3-44.2); Mean Corpuscular HGB Conc 31.5 g/dl (32-36); Mean Corpuscular Hemoglobin 27.9 pg (26-34); Mean Corpuscular Volume 88.7 fl (80-100); Mean Platelet Volume 10.3 fl (7.4-10.4); Monocytes Percent Auto 9.1 % (2.6-8.5); Neutrophils Absolute Auto 5.7 K/mm3 (1.3-6.7); Neutrophils Percent Auto 51.4 % (45.5-73.1); Platelet Count Result 239 k/mm3 (150-375); Red Blood Count 4.41 M/mm3 (4.2-5.4); Red Cell Distribution Width 14.1 % (11.5-14.5); White Blood Count 11.1 K/mm3 (4.5-10.0)
[2024-08-11 16:58] LABS: Partial Thromboplastin Time 26.2 Seconds (22.3-36.8)
[2024-08-11 17:10] LABS: Add Urine Microscopic? YES; Appearance Urine Cloudy (Clear); Bacteria Urine None Seen /hpf; Bilirubin Urine Negative (Negative); Blood Urine Negative (Negative); Calcium Oxalate Crystals Urine Present /hpf; Color Urine Yellow (Yellow); Glucose Urine UA Negative (Negative); Ketones Urine Trace mg/dL (Negative); Leukocyte Esterase Ur Negative LEU/UL (Negative); Need Manual Microscopic Reviewed; Nitrate Urine Negative (Negative); Non Pathogenic Casts 0-2; Protein Urine Negative (Negative); Specific Grav Ur 1.029 (1.001-1.035); Squamous Epithelial Cell Urine Occasional /hpf (Few); WBC Urine 0-5 /hpf (0-3)
[2024-08-11 17:12] LABS: Alanine Aminotransferase 15 U/L (6-35); Albumin Level 3.9 g/dL (3.5-5.1); Alkaline Phosphatase 65 U/L (38-126); Anion Gap 5 mmol/L (4-12); Aspartate Amino Transferase 24 U/L (14-36); Bilirubin,Total 0.3 mg/dL (0.2-1.3); Blood Urea Nitrogen 14 mg/dL (7-17); Calcium 8.5 mg/dL (8.4-10.2); Carbon Dioxide 25 mmol/L (22-30); Chloride 111 mmol/L (98-107); Estimated CRCL calculation 136 ml/min; Estimated Glomerular Filt Rate > 60; Glucose 92 mg/dL (65-110); Lipase 344 U/L (23-300); Potassium 3.4 mmol/L (3.4-5.0); Sodium 141 mmol/L (137-145); Total Protein 7.2 g/dL (6.3-8.2); Troponin I < 0.012 ng/mL (0.000-0.034)
[2024-08-11] MEDS: SODIUM CHLORIDE 0.9% IV 1,000 ML 999 ML IV CONT (17:40)
[2024-08-11 17:43] VITALS: BP 146/95; PULSE 82; RESP 19; O2SAT 100
[2024-08-11] MEDS: BELLADONNA ALK/PHENOB ELIX 10 ML, MAG HYDROX/ALUMINUM HYD/SIMETH 30 ML, LIDOCAINE 2% VI... PO (19:30)
[2024-08-11 19:42] VITALS: BP 152/97; PULSE 79; RESP 18; O2SAT 100
[2024-08-11 20:05] VITALS: BP 145/84; PULSE 83; RESP 17; TEMP 36.8; O2SAT 100
[2024-08-11 20:20] LABS: Troponin I < 0.012 ng/mL (0.000-0.034)
== END 2024-08-11 20:07 | disposition home or self-care (01) ==
PROVIDERS: Emergency Provider Registered Nurse
DX: K04.7 Periapical abscess without sinus (principal); S01.101D Unspecified open wound of right eyelid and periocular area, subsequent encounter; K21.9 Gastro-esophageal reflux disease without esophagitis; N85.2 Hypertrophy of uterus; E04.9 Nontoxic goiter, unspecified; I10 Essential (primary) hypertension; K43.9 Ventral hernia without obstruction or gangrene; X58.XXXD Exposure to other specified factors, subsequent encounter
CPT/HCPCS: 15853; 36415; 71046; 71260; 74177; 80053; 81001; 81025; 83690; 84484; 85025; 85610; 85730; 93005; 96360; 99284; A9270; J7030; Q9967